=== PATIENT | female | born 1970 | race African-American/Black ===

== ENCOUNTER → 2016-05-14 | Outpatient (CLI) | payer SELFPAY ==
[2016-05-14 11:02] LABS: ABSOLUTE BASOPHILS # (AUTO) 0.1 10^3/uL (0.0-0.2); ABSOLUTE EOSINOPHILS # (AUTO) 0.9 10^3/uL (0.0-0.6); ABSOLUTE LYMPHOCYTES (AUTO) 1.3 10^3/uL (0.5-4.7); ABSOLUTE MONOCYTES (AUTO) 0.5 10^3/uL (0.1-1.4); ABSOLUTE NEUT (AUTO) 2.7 10^3/uL (1.7-8.2); BASOPHILS % (AUTO) 1.1 % (0-2); HEMATOCRIT 39.4 % (36.0-47.0); HEMOGLOBIN 13.1 g/dL (12.0-15.5); HGB HCT DIFFERENCE -0.1; LYMPHOCYTES % (AUTO) 24.3 % (13-45); MEAN CORPUSCULAR HEMOGLOBIN 27.7 pg (27.0-33.4); MEAN CORPUSCULAR HGB CONC 33.1 g/dL (32.0-36.0); MEAN CORPUSCULAR VOLUME 84 fl (80-97); MONOCYTES % (AUTO) 8.4 % (3-13); RED BLOOD COUNT 4.71 10^6/uL (3.72-5.28); RED CELL DISTRIBUTION WIDTH 15.7 % (11.5-14.0); SEGMENTED NEUTROPHILS % (AUTO) 50.2 % (42-78); WHITE BLOOD COUNT 5.4 10^3/uL (4.0-10.5)
[2016-05-14 11:35] LABS: ALANINE AMINOTRANSFERASE 31 U/L (9-52); ALBUMIN 3.8 g/dL (3.5-5.0); ALKALINE PHOSPHATASE 76 U/L (38-126); ANION GAP 12 (5-19); ASPARTATE AMINO TRANSFERASE 16 U/L (14-36); BILIRUBIN,TOTAL 0.4 mg/dL (0.2-1.3); BLOOD UREA NITROGEN 10 mg/dL (7-20); CALCIUM 8.9 mg/dL (8.4-10.2); CARBON DIOXIDE 24 mmol/L (22-30); CHLORIDE 105 mmol/L (98-107); CREATININE RESULT 0.69 mg/dL (0.52-1.25); GLUCOSE 83 mg/dL (75-110); POTASSIUM 4.3 mmol/L (3.6-5.0); SODIUM 140.7 mmol/L (137-145); TOTAL PROTEIN 6.8 g/dL (6.3-8.2)
== END ==
LOC: OD 10:01
PROVIDERS: ATTEND Internal Medicine Cardiovascular Disease
DX: R00.2 Palpitations (principal); R07.9 Chest pain, unspecified; Z95.2 Presence of prosthetic heart valve
CPT/HCPCS: 36415; 80053; 84443; 85025

== ENCOUNTER 2017-04-12 21:42 | Emergency (ER) | payer MEDICAID, OTHER ==
--- NOTE | 2017-04-13 00:27 | ER Document Report ---
ED Cardiac - General Chief Complaint: Chest Pain Stated Complaint: CHEST PAIN Time Seen by Provider: 04/13/17 00:26 Notes: The patient, PMHx aortic and mitral valve replacement (on Lovenox), presents with constant upper chest pain for the past 2 days. She had a negative stress test and cardiac cath 8 months ago in [place]. Patient denies shortness of breath, leg swelling, numbness, tingling, back pain, rash, fevers, headache, cough or headache. TRAVEL OUTSIDE OF THE [place] IN LAST 30 DAYS: No - Related Data Allergies/Adverse Reactions: No Known Allergies Allergy (Verified 07/31/14 00:12) Past Medical History - General Information source: Patient - Social History Smoking Status: Unknown if Ever Smoked Family History: Reviewed & Not Pertinent Patient has suicidal ideation: No Patient has homicidal ideation: No Renal/ Medical History: Denies: Hx Peritoneal Dialysis Past Surgical History: Reports: Hx Cardiac Catheterization - valve replacement, Hx Cardiac Surgery - artificial mitral and aortic valves, 2011 - Immunizations Immunizations up to date: Yes Hx Diphtheria, Pertussis, Tetanus Vaccination: Yes Review of Systems - Review of Systems Notes: REVIEW OF SYSTEMS: CONSTITUTIONAL: -fevers, -chills EENT: -eye pain, -difficulty swallowing, -nasal congestion CARDIOVASCULAR: +chest pain, -syncope. RESPIRATORY: -cough, -SOB GASTROINTESTINAL: -abdominal pain, - nausea, -vomiting, -diarrhea GENITOURINARY: -dysuria, -hematuria MUSCULOSKELETAL: -back pain, -neck pain SKIN: -rash or skin lesions. HEMATOLOGIC: -easy bruising or bleeding. LYMPHATIC: -swollen, enlarged glands. NEUROLOGICAL: -altered mental status or loss of consciousness, -headache, - neurologic symptoms PSYCHIATRIC: -anxiety, -depression. ALL OTHER SYSTEMS REVIEWED AND NEGATIVE. Physical Exam - Vital signs Vitals: Temp Pulse Resp BP Pulse Ox 98.1 F 58 L 18 151/74 H 98 04/12/17 21:57 04/12/17 21:57 04/12/17 21:57 04/12/17 21:57 04/12/17 21:57 - Notes Notes: PHYSICAL EXAMINATION: GENERAL: Well-appearing, well-nourished and in no acute distress. HEAD: Atraumatic, normocephalic. EYES: Pupils equal round and reactive to light, extraocular movements intact, sclera anicteric, conjunctiva are normal. ENT: nares patent, oropharynx clear without exudates. Moist mucous membranes. NECK: Normal range of motion, supple without lymphadenopathy LUNGS: Breath sounds clear to auscultation bilaterally and equal. No wheezes rales or rhonchi. HEART: Regular rate and rhythm without murmurs ABDOMEN: Soft, nontender, normoactive bowel sounds. No guarding, no rebound. No masses appreciated. EXTREMITIES: Normal range of motion, no pitting or edema. No cyanosis. NEUROLOGICAL: Cranial nerves grossly intact. Normal speech, normal gait. Normal sensory and motor exams. PSYCH: Normal mood, normal affect. SKIN: Warm, Dry, normal turgor, no rashes or lesions noted. Course - Re-evaluation Re-evalutation: Patient's chest pain completely resolved. Her EKG, troponin, blood work and chest x-ray are unremarkable. Her chest x-ray shows a possible left lower lobe opacity, but she denies any fevers, cough or leukocytosis to suggest an pneumonia. Patient's HEART score is 3. She is PERC negative. Symptoms are atypical for aortic dissection. Instructed her follow-up with her primary care physician and molded grid and parts inspector tomorrow for further evaluation and treatment. Given very strict return precautions and she understands. - Vital Signs Vital signs: Temp Pulse Resp BP Pulse Ox 98.1 F 58 L 17 121/68 99 04/12/17 21:57 04/12/17 21:57 04/13/17 04:01 04/13/17 04:01 04/13/17 04:01 - Laboratory Result Diagrams: 04/13/17 01:15 04/13/17 01:15 Laboratory results interpreted by me: 04/13/17 04/13/17 01:15 01:15 Hgb 11.9 L Hct 35.8 L RDW 17.7 H Plt Count 119 L Eosinophils % 11.9 H Absolute Eosinophils 0.7 H Chloride 108 H - Diagnostic Test Radiology reviewed: Image reviewed, Reports reviewed Radiology results interpreted by me: CXR: Small left basilar opacity -effusion. - EKG Interpretation by Me EKG shows normal: Sinus rhythm, [place], Intervals, QRS Complexes, ST-T Waves Rate: Normal Discharge - Discharge Clinical Impression: Chest pain Qualifiers: Chest pain type: unspecified Qualified Code(s): R07.9 - Chest pain, unspecified Condition: Stable Disposition: HOME, SELF-CARE Additional Instructions: CHEST PAIN OF UNCLEAR CAUSE: The exact cause of your chest pain isn't clear. Fortunately, there is no evidence of a dangerous medical condition. Further testing may be required to find the source of the pain. Most often, we find that this pain is coming from the chest wall -- the muscles or rib joints in the chest. But chest pain can come from the lung and lung lining, the esophagus, the heart valves or heart lining, and even the stomach or gallbladder. Rest. Eat lightly until the pain is gone. We may prescribe medicine for pain and inflammation. You should call the physician immediately if the pain radiates to the shoulder, jaw or arms; if you start to run a fever or develop a cough; or if you develop shortness of breath, or other new or alarming symptoms. NORMAL EXAM AND WORKUP: At this time, your examination and workup show no significant abnormality. No significant abnormal physical findings were noted. All laboratory, EKG, and imaging (x-ray, CT scans, ultrasound) studies that were ordered show no significant abnormality. Although your examination and all studies that were ordered showed no significant abnormal finding, there are no examinations and no studies that are 100% accurate. There is always the possibility that some abnormality could exist and not be detected with physical examination or within the limits and capabilities of laboratory and other studies. You should return or follow up as you were instructed on your visit today for further evaluation if your symptoms do not resolve. CHEST WALL PAIN: Your chest pain may be coming from the chest wall. This is often caused by straining the muscles or joints in the chest during physical activity, direct trauma, coughing, or vigorous vomiting. Persons with arthritis are especially prone to this type of pain, due to inflammation of the cartilage joints near the breast bone. Occasionally, no cause can be found. Rest from strenuous physical activity. This kind of chest pain is usually made worse by movement of the chest. Depending on the symptoms, we may prescribe medicine for pain, muscle relaxation, and antiinflammatory effects. If the pain is new, and seems to be due to muscle strain, cold packs can help. Otherwise, apply gentle warmth to the painful area for 15 minutes every hour or two. You should call contact the doctor immediately if things change. Further evaluation is needed if you develop a fever or cough, if the nature of the pain changes, or if you become short of breath. ANGINA EPISODE: Your physician has diagnosed the pain you experienced as an episode of angina. Angina occurs when a portion of the heart muscle temporarily lacks oxygen. It does not cause any permanent heart damage, but serves as a warning. Hospitalization is not necessary now. Evaluation of your cardiac condition , and medical therapy for angina will be necessary. It's important you be sure to keep all appointments and take medication exactly as prescribed. Angina is usually treated with a type of "nitrate" medication. This is available as ointment, pills, or sublingual (under the tongue) tablets. Depending on your clinical situation, other medications may be added to help control angina. These may include beta blockers or calcium blockers. If episodes of angina are occurring with increased frequency, or if chest pain lasts longer than 15 minutes or does not respond to nitroglycerin, you must seek emergency medical care immediately. ASPIRIN: Aspirin has been shown to have a beneficial effect on blood circulation by reducing the clotting effect of platelets in the blood. These beneficial effects can be achieved by taking just a single baby (81 mg) aspirin a day. It is recommended that any person over the age of forty take a single baby aspirin every day for heart and brain circulation, unless you are allergic to aspirin or have some significant bleeding disorder. It is strongly recommended that people who have proven cardiac or blood circulation disturbances should take a baby aspirin every day. NITRATES: Nitroglycerin and related longer-acting nitrate medications are used to prevent or treat attacks of angina. These medicines dilate blood vessels, decreasing the work of the heart, and improving its supply of oxygen. Many different forms are available, including sublingual tablets (used under the tongue), sprays, skin patches, and long-acting pills. If the particular form of medication you have been given is not working well for you, contact your doctor. Long-acting forms: Take exactly as prescribed. Sudden stopping of medication can provoke increased attacks. Sublingual tabs or spray: A headache will usually occur with use. Sit or lie while waiting for the pain to go away. If angina doesn't respond to three doses (five minutes apart), call for emergency assistance. FOLLOW-UP CARE: If you have been referred to a physician for follow-up care, call the physician s office for an appointment as you were instructed or within the next two days. If you experience worsening or a significant change in your symptoms, notify the physician immediately or return to the Emergency Department at any time for re-evaluation. Referrals: KRISTAN SAMS MD [ACTIVE STAFF] - Follow up as needed
[2017-04-13] MEDS ORDERED: NITROGLYCERIN 0.4 MG/TAB 25 TAB/BOTTLE SL PRN (01:00)
[2017-04-13] MEDS ORDERED: ASPIRIN 81 MG TABLET, CHEWABLE PO ONE (01:00)
--- NOTE | 2017-04-13 01:20 | RADIOLOGY REPORT (SQ) ---
EXAM DESCRIPTION: CHEST SINGLE VIEW COMPLETED DATE/TIME: 04/13/2017 1:07 am REASON FOR STUDY: chest pain COMPARISON: 07/31/2014. CT, 01/10/2013. EXAM PARAMETERS: NUMBER OF VIEWS: One view. TECHNIQUE: Single frontal radiographic view of the chest acquired. RADIATION DOSE: NA LIMITATIONS: None. FINDINGS: LUNGS AND PLEURA: Small left basilar opacity -effusion. Small pleural-based scar -atelect asis of the lateral left mid hemithorax. Similar appearance on prior exam from July 2014. MEDIASTINUM AND HILAR STRUCTURES: No masses. Contour normal. HEART AND VASCULAR STRUCTURES: Heart normal in size. Normal vasculature. BONES: No acute findings. HARDWARE: Sternotomy. OTHER: No other significant finding. IMPRESSION: Small left basilar opacity -effusion. TECHNICAL DOCUMENTATION: JOB ID: [id number] [employer]- All Rights Reserved
[2017-04-13 01:56] LABS: ABSOLUTE BASOPHILS # (AUTO) 0.1 10^3/uL (0.0-0.2); ABSOLUTE EOSINOPHILS # (AUTO) 0.7 10^3/uL (0.0-0.6); ABSOLUTE LYMPHOCYTES (AUTO) 1.6 10^3/uL (0.5-4.7); ABSOLUTE MONOCYTES (AUTO) 0.5 10^3/uL (0.1-1.4); ABSOLUTE NEUT (AUTO) 2.9 10^3/uL (1.7-8.2); BASOPHILS % (AUTO) 1.2 % (0-2); EOSINOPHILS % (AUTO) 11.9 % (0-6); HEMATOCRIT 35.8 % (36.0-47.0); HEMOGLOBIN 11.9 g/dL (12.0-15.5); HGB HCT DIFFERENCE -0.1; MEAN CORPUSCULAR HGB CONC 33.1 g/dL (32.0-36.0); MEAN CORPUSCULAR VOLUME 82 fl (80-97); MONOCYTES % (AUTO) 8.5 % (3-13); RED BLOOD COUNT 4.38 10^6/uL (3.72-5.28); RED CELL DISTRIBUTION WIDTH 17.7 % (11.5-14.0); SEGMENTED NEUTROPHILS % (AUTO) 50.4 % (42-78); WHITE BLOOD COUNT 5.7 10^3/uL (4.0-10.5)
[2017-04-13 03:25] LABS: ALANINE AMINOTRANSFERASE 35 U/L (9-52); ALBUMIN 3.7 g/dL (3.5-5.0); ALKALINE PHOSPHATASE 84 U/L (38-126); ANION GAP 10 (5-19); ASPARTATE AMINO TRANSFERASE 20 U/L (14-36); BILIRUBIN,DIRECT 0.3 mg/dL (0.0-0.4); BILIRUBIN,TOTAL 0.4 mg/dL (0.2-1.3); BLOOD UREA NITROGEN 12 mg/dL (7-20); CALCIUM 8.7 mg/dL (8.4-10.2); CARBON DIOXIDE 24 mmol/L (22-30); CHLORIDE 108 mmol/L (98-107); CREATINE KINASE 110 U/L (30-135); GLUCOSE 107 mg/dL (75-110); POTASSIUM 3.9 mmol/L (3.6-5.0); SODIUM 141.9 mmol/L (137-145); TOTAL PROTEIN 6.4 g/dL (6.3-8.2)
[2017-04-13 04:22] VITALS: BP 121/68
--- NOTE | 2017-04-13 09:19 | EKG REPORT ---
SEVERITY:- ABNORMAL ECG - SINUS RHYTHM INCOMPLETE RIGHT BUNDLE BRANCH BLOCK : Confirmed by: Van Pulliam MD 13-Apr-2017 09:18:34
== END 2017-04-13 04:22 | disposition home or self-care (01) ==
LOC: ER 21:42
DX: R07.9 Chest pain, unspecified (principal); Z95.2 Presence of prosthetic heart valve; Z79.02 Long term (current) use of antithrombotics/antiplatelets
CPT/HCPCS: 36415; 71010; 80053; 81025; 82550; 84484; 85025; 93005; 93010; 99285

== ENCOUNTER 2018-06-18 10:18 | Emergency (ER) | payer OTHER ==
--- NOTE | 2018-06-18 12:04 | ER Document Report ---
ED Medical Screen (RME) - General Chief Complaint: Cough Stated Complaint: COUGH Time Seen by Provider: 06/18/18 12:01 Mode of Arrival: Ambulatory Information source: Patient Notes: Patient is a 47-year-old female who presents to the emergency department with chief complaint of cough. Patient reports cough started on Friday. Patient has associated congestion, chills, fevers, body aches, nausea, vomiting and diarrhea. Patient denies any specific chest pain but states that she has a pacemaker and the cough is "messing with my pacemaker". Patient reports some intermittent chest discomfort with the cough. Exam: Heart sounds S1-S2 present, no murmur appreciated. Lung sounds clear to auscultation bilaterally. I have greeted and performed a rapid initial assessment of this patient. A comprehensive ED assessment and evaluation of the patient, analysis of test results and completion of the medical decision making process will be conducted by additional ED providers. Dictation of this chart was performed using voice recognition software; therefore, there may be some unintended grammatical errors. TRAVEL OUTSIDE OF THE [place] IN LAST 30 DAYS: No - Related Data Allergies/Adverse Reactions: No Known Allergies Allergy (Verified 07/31/14 00:12) Past Medical History Renal/ Medical History: Denies: Hx Peritoneal Dialysis Past Surgical History: Reports: Hx Cardiac Catheterization - valve replacement, Hx Cardiac Surgery - artificial mitral and aortic valves, 2012 - Immunizations Immunizations up to date: Yes Hx Diphtheria, Pertussis, Tetanus Vaccination: Yes Physical Exam - Vital signs Vitals: Temp Pulse Resp BP Pulse Ox 101.0 F H 105 H 18 151/80 H 95 06/18/18 10:30 06/18/18 10:30 06/18/18 10:30 06/18/18 10:30 06/18/18 10:30 Course - Vital Signs Vital signs: Temp Pulse Resp BP Pulse Ox 101.0 F H 105 H 18 151/80 H 95 06/18/18 10:30 06/18/18 10:30 06/18/18 10:30 06/18/18 10:30 06/18/18 10:30
--- NOTE | 2018-06-18 12:41 | RADIOLOGY REPORT (SQ) ---
EXAM DESCRIPTION: CHEST 2 VIEWS COMPLETED DATE/TIME: 06/18/2018 12:23 pm REASON FOR STUDY: cough, chills, chest pain COMPARISON: Chest films 04/13/2017, 07/31/2014 EXAM PARAMETERS: NUMBER OF VIEWS: two views TECHNIQUE: Digital Frontal and Lateral radiographic views of the chest acquired. RADIATION DOSE: NA LIMITATIONS: none FINDINGS: LUNGS AND PLEURA: Chronic blunting of the left lateral and posterior costophrenic sulci. No acute infiltrates. No pleural effusions. No pneumothorax. MEDIASTINUM AND HILAR STRUCTURES: No masses or contour abnormalities. HEART AND VASCULAR STRUCTURES: Old sternotomy with CABG. BONES: No acute findings. HARDWARE: Right-sided dual lead pacemaker OTHER: No other significant finding. IMPRESSION: No acute findings. TECHNICAL DOCUMENTATION: JOB ID: [id number] [employer]- All Rights Reserved Reading location - IP/workstation name: [email or web address]
[2018-06-18] MEDS ORDERED: ACETAMINOPHEN 325 MG TABLET PO ONE ×2 (13:41→21:13)
[2018-06-18 15:51] LABS: ABSOLUTE EOSINOPHILS # (AUTO) 0.1 10^3/uL (0.0-0.6); ABSOLUTE LYMPHOCYTES (AUTO) 0.4 10^3/uL (0.5-4.7); ABSOLUTE MONOCYTES (AUTO) 0.5 10^3/uL (0.1-1.4); ABSOLUTE NEUT (AUTO) 5.1 10^3/uL (1.7-8.2); BASOPHILS % (AUTO) 0.7 % (0-2); EOSINOPHILS % (AUTO) 1.5 % (0-6); HEMATOCRIT 40.5 % (36.0-47.0); HEMOGLOBIN 13.6 g/dL (12.0-15.5); LYMPHOCYTES % (AUTO) 7.1 % (13-45); MEAN CORPUSCULAR HEMOGLOBIN 28.6 pg (27.0-33.4); MEAN CORPUSCULAR HGB CONC 33.6 g/dL (32.0-36.0); MEAN CORPUSCULAR VOLUME 85 fl (80-97); MONOCYTES % (AUTO) 7.5 % (3-13); PLATELET COUNT 138 10^3/uL (150-450); RED BLOOD COUNT 4.76 10^6/uL (3.72-5.28); SEGMENTED NEUTROPHILS % (AUTO) 83.2 % (42-78); TOTAL CELLS COUNTED % (AUTO) 100 %; WHITE BLOOD COUNT 6.1 10^3/uL (4.0-10.5)
[2018-06-18 16:09] LABS: ALANINE AMINOTRANSFERASE 18 U/L (9-52); ALBUMIN 4.3 g/dL (3.5-5.0); ALKALINE PHOSPHATASE 90 U/L (38-126); ANION GAP 12 (5-19); ASPARTATE AMINO TRANSFERASE 23 U/L (14-36); BILIRUBIN,DIRECT 0.2 mg/dL (0.0-0.4); BILIRUBIN,TOTAL 0.8 mg/dL (0.2-1.3); BLOOD UREA NITROGEN 12 mg/dL (7-20); CALCIUM 9.3 mg/dL (8.4-10.2); CARBON DIOXIDE 21 mmol/L (22-30); CHLORIDE 106 mmol/L (98-107); GLUCOSE 82 mg/dL (75-110); POTASSIUM 3.9 mmol/L (3.6-5.0); SODIUM 139.1 mmol/L (137-145); TOTAL PROTEIN 7.2 g/dL (6.3-8.2)
[2018-06-18 16:45] LABS: A TYPE INFLUENZA AG NEGATIVE (NEGATIVE); B INFLUENZA AG NEGATIVE (NEGATIVE)
--- NOTE | 2018-06-18 17:53 | ER Document Report ---
Addendum entered and electronically signed by EVELINA CHEEMA PA-C 06/19/18 14:14: Discharge - Discharge Clinical Impression: Shortness of breath, Influenza Condition: Stable Disposition: HOME, SELF-CARE Additional Instructions: We were initially concerned that you were having runs of ventricular tachycardia. This is a dangerous rhythm. Fortunately after interrogation of your pacemaker by the [employer] traffic workforce representative we have confirmed that you do not have this type of rhythm. Our mobility manager Dr. Mason will contact your mobility manager at 8 AM in the morning to discuss your case. Please contact your mobility manager for follow-up. Your additional symptoms including fever, cough and sore throat are likely due t o a viral infection either influenza or similar virus. The only treatment at this time is supportive care including drinking plenty of fluids, Tylenol and ibuprofen, as well as nausea medicines which you will be sent home with. Your symptoms will likely last for 7-10 days. Please return to the emergency department immediately if you become confused, have persistent vomiting, pass out, have severe headache, or have any other symptoms that are worrisome to you. Follow-up with your primary care doctor in the next several days. Original Note: ED General - General Mode of Arrival: Ambulatory TRAVEL OUTSIDE OF THE [place] IN LAST 30 DAYS: No <EVELINA CHEEMA - Last Filed: 06/18/18 21:02> <ALICE SHIRLEY - Last Filed: 06/19/18 01:44> - General Chief Complaint: Cough Stated Complaint: COUGH Time Seen by Provider: 06/18/18 12:01 Notes: 40-year-old female with history of 2 heart valve replacement status post pacemaker presents to the emergency department with a bad cough. She states it started Friday and she has had difficulty breathing. She complains of fevers and chills she complains of cough and rhinorrhea, denies sore throat, she complains of chest pain with cough not at rest, she complains of nausea and vomiting, denies diarrhea. Denies dizziness or diaphoresis denies lightheadedness denies dyspnea on exertion. (EVELINA CHEEMA) - Related Data Allergies/Adverse Reactions: No Known Allergies Allergy (Verified 06/18/18 21:35) Past Medical History - General Information source: Patient - Social History Smoking Status: Smoker,Current Status Unk Family History: Reviewed & Not Pertinent Patient has suicidal ideation: No Patient has homicidal ideation: No Renal/ Medical History: Denies: Hx Peritoneal Dialysis Past Surgical History: Reports: Hx Cardiac Catheterization - valve replacement, Hx Cardiac Surgery - artificial mitral and aortic valves, 2012 - Immunizations Immunizations up to date: Yes Hx Diphtheria, Pertussis, Tetanus Vaccination: Yes <ARTIEEVELINA WONG - Last Filed: 06/18/18 21:02> Review of Systems - Review of Systems Constitutional: See HPI EENT: See HPI Cardiovascular: See HPI Respiratory: See HPI Gastrointestinal: See HPI Genitourinary: No symptoms reported Female Genitourinary: No symptoms reported Musculoskeletal: No symptoms reported Skin: See HPI Hematologic/Lymphatic: No symptoms reported Neurological/Psychological: See HPI <DENIEVELINA - Last Filed: 06/18/18 21:02> Physical Exam <ARTIETAMMYVIRGINIAEVELINA - Last Filed: 06/18/18 21:02> - Vital signs Vitals: Temp Pulse Resp BP Pulse Ox 101.0 F H 105 H 18 151/80 H 95 06/18/18 10:30 06/18/18 10:30 06/18/18 10:30 06/18/18 10:30 06/18/18 10:30 - Notes Notes: PHYSICAL EXAMINATION: Reviewed vital signs and charting by RN GENERAL: Alert, interacts well. Mild distress distress. HEAD: Normocephalic, atraumatic. EYES: Pupils equal, round. Extraocular movements intact. ENT: Oral mucosa moist, tongue midline, no tonsillar hypertrophy or soft palate petechiae, no tonsillar exudate. NECK: Full range of motion. Supple. Trachea midline. No lymphadenopathy. LUNGS: Clear to auscultation bilaterally, ++ wheezes all acuna, rales, or rhonchi. No respiratory distress. HEART: Regular rate and rhythm. Grade 3/6 systolic ejection murmur ABDOMEN: soft, non-tender. Non-distended. Bowel sounds present in all 4 quadrants. no McBurney's point tenderness, no Thorne sign. EXTREMITIES: Moves all 4 extremities spontaneously. No edema, No cyanosis. BACK: no cervical, thoracic, lumbar midline tenderness. No saddle anesthesia, normal distal neurovascular exam. NEUROLOGICAL: Alert and oriented x3. Normal speech. PSYCH: Normal affect, normal mood. SKIN: Warm, dry, normal turgor. No rashes or lesions noted. (CARROLL CHEEMAEL) Course - Laboratory Result Diagrams: 06/18/18 15:40 06/18/18 15:40 <DENIEVELINA - Last Filed: 06/18/18 21:02> - Laboratory Result Diagrams: 06/18/18 15:40 06/18/18 15:40 <ALICE SHIRLEY - Last Filed: 06/19/18 01:44> - Re-evaluation Re-evalutation: 06/18/18 17:52 Mildly ill-appearing 48-year-old female presents with terrible cough. Wheezing heard in all acuna. She complains of chest wall pain that is worse with coughing. She denies any chest pain at rest. Initial troponin was 0.034. Plan is to get a repeat troponin. Chest x-ray was normal. EKG no evidence of STEMI. Her symptoms are most likely related to a viral illness. Her influenza was negative. 06/18/18 19:10 Briefly discussed case with Dr. Oro. We will give her a DuoNeb and reassess. Second troponin drawn and pending. I have very low suspicion for a CS at this point. 06/18/18 19:24 Patient just finished DuoNeb and reports subjective improvement. Still with end expiratory wheezing right worse than left. We will give her 1 more DuoNeb. Second troponin is drawn and result is pending. We will then discuss case with Dr. Sauceda for disposition. 06/18/18 20:[address] Mason, on-call mobility manager, and explained to him patient had troponin of 0.034 with pending second troponin. He said he is not concerned about the troponin of 0.034 and there is no reason to admit her. I explained to him that she had a 2 valve replacement in the past. He was unmoved and said that there is no emergent condition that would require admission at this time based on our conversation. Second troponin ultimately resulted at 0.029. I discussed with Dr. Sauceda and as long as there is no large bump in troponin we would follow the mobility manager on-call recommendation. She is awaiting a second DuoNeb and for reassessment. 06/18/18 21:02 Patient had a run of V. tach. Spontaneously resolved. Patient then had a second run of V. tach with associated shortness of breath. I went and discussed case with Dr. Shirley. [facility] will be transferred to [facility] and he is assuming care of the patient. (EVELINA CHEEMA) - Vital Signs Vital signs: Temp Pulse Resp BP Pulse Ox 99.3 F 105 H 20 111/77 97 06/18/18 23:00 06/18/18 10:30 06/19/18 01:01 06/19/18 01:01 06/19/18 01:01 - Laboratory Laboratory results interpreted by me: 06/18/18 06/18/18 06/18/18 15:40 15:40 18:55 RDW 15.0 H Plt Count 138 L Seg Neutrophils % 83.2 H Lymphocytes % 7.1 L Absolute Lymphocytes 0.4 L Carbon Dioxide 21 L NT-Pro-B Natriuret Pep 748 H Discharge <EVELINA CHEEMA - Last Filed: 06/18/18 21:02> <ALICE SHIRLEY - Last Filed: 06/19/18 01:44> - Discharge Clinical Impression: Shortness of breath, Influenza Condition: Stable Disposition: HOME, SELF-CARE Additional Instructions: We were initially concerned that you were having runs of ventricular tachycardia. This is a dangerous rhythm. Fortunately after interrogation of your pacemaker by the [employer] traffic workforce representative we have confirmed that you do not have this type of rhythm. Our mobility manager Dr. Mason will contact your mobility manager at 8 AM in the morning to discuss your case. Please contact your mobility manager for follow-up. Your additional symptoms including fever, cough and sore throat are likely due to a viral infection either influenza or similar virus. The only treatment at this time is supportive care including drinking plenty of fluids, Tylenol and ibuprofen, as well as nausea medicines which you will be sent home with. Your symptoms will likely last for 7-10 days. Please return to the emergency d epartment immediately if you become confused, have persistent vomiting, pass out, have severe headache, or have any other symptoms that are worrisome to you. Follow-up with your primary care doctor in the next several days.
[2018-06-18] MEDS ORDERED: IPRATROPIUM/ALBUTEROL 0.5-2.5 MG/3 ML AMPUL NEB ONE ×2 (18:49→19:24)
[2018-06-18] MEDS ORDERED: AMIODARONE HCL 150 MG in DEXTROSE 5%-WATER 100 ML IV ONE (20:55)
[2018-06-18] MEDS ORDERED: DEXTROSE 5%-WATER 500 ML with AMIODARONE HCL 900 MG IV PRN ×2 (20:56)
--- NOTE | 2018-06-18 20:59 | ER Document Report ---
Doctor's Note Notes: 06/18/18 20:57 I have assumed care of this patient from the physician trust administrative assistant. In summary this 47-year-old patient with a known history of 2 valve replacements, on anticoagulant, has a history of a pacemaker in place and known history of A. fib presented with fever, shortness of breath and cough. Workup to this point has been relatively reassuring with the exception of a indeterminate troponin which has subsequently declined. Patient has had multiple runs of ventricular tachycardia here in the emergency department captured on monitor. No known history of the same. Given ongoing shortness of breath, some degree of chest pain, low-grade fever, there is an additional concern for possible pulmonary embolus. CTA will be obtained. Patient will also be started on amiodarone infusion given that she has had multiple runs of ventricular tachycardia while here in the emergency department. She has been transitioned from pod 5 to the main side. Will continue to reassess the patient at regular intervals. Please see physician trust administrative assistant documentation for initial H&P. We will also interrogate the patient's pacemaker is apparently she is also notified yesterday that she had had a run of ventricular tachycardia. 06/18/18 21:05 We have reviewed the transcripts of the patient's telemetry, she was in ventricular tachycardia for sustained period of 3 minutes. Currently in normal sinus rhythm. Otherwise nontoxic in appearance. Suspect underlying influenza given clinical picture of nausea, vomiting, diarrhea, sore throat and cough with associated fever despite negative influenza testing which has a relatively high rate of false negative testing. Will continue to monitor closely 06/18/18 22:33 CTA of the chest without any acute findings. Suspect that the patient has influenza despite negative testing. Given repeated runs of ventricular tachycardia patient will require hospitalization. Will discuss with the hospitalist for admission. 06/18/18 23:21 I discussed this case with Dr. Klein who states that this could alternatively be a ventricular paced rhythm. He has recommended ICU admission on amio. Critical Care Note - Critical Care Note Total time excluding time spent on procedures (mins): 40 Comments: Critical care time spent obtaining history from patient or surrogate, discussions with consultants, development of treatment plan with patient or surrogate, evaluation of patient's response to treatment, examination of patient, ordering and performing treatments and interventions, ordering and review of laboratory studies, re-evaluation of patient's condition, ordering and review of radiographic studies and review of old charts
[2018-06-18 21:51] LABS: INTERNATIONAL RATION (INR) 1.01; PROTHROMBIN TIME 13.8 SEC (11.4-15.4)
--- NOTE | 2018-06-18 22:03 | RADIOLOGY REPORT (SQ) ---
EXAM DESCRIPTION: CT CHEST ANGIOGRAPHY WITHOUT THEN WITH IV CONTRAST COMPLETED DATE/TME: 06/18/2018 20:57 CLINICAL HISTORY: 47 years, Female, sob, cp, runs of vtach COMPARISON: None. TECHNIQUE: 675 Images stored on PACS. All CT scanners at this facility use dose modulation, iterative reconstruction, and/or weight based dosing when appropriate to reduce radiation dose to as low as reasonably achievable (ALARA). Axial CTA images were obtained with coronal and sagittal MIPS reconstructions [facility]: Dose Right [facility]: CareDose [facility]: Dose Right [facility]: Teradose 4D [facility]: [employer] LIMITATIONS: None. FINDINGS: The mediastinal vasculature enhances normally. No intraluminal filling defect to suggest pulmonary embolus. Negative for thoracic aortic aneurysm or dissection. Right-sided pacing device present. Postsurgical change of the mediastinum. Nonenlarged to mildly enlarged mediastinal and hilar lymph nodes. The largest node is in the subcarinal region measuring 1.7 x 1.2 cm. Limited evaluation of the upper abdomen shows fatty infiltrative change to the liver. Osseous structures are grossly intact. No pneumothorax. The visualized airways are patent. Subsegmental atelectasis/scarring in the posterior left lung base and lateral left upper lobe. Lungs are otherwise clear.. IMPRESSION: Negative for pulmonary embolus, thoracic aortic aneurysm, or dissection. Subsegmental atelectasis and scarring of the left hemithorax. Nonenlarged to mildly enlarged mediastinal and hilar lymph nodes. Etiology indeterminate. Could consider short-term follow-up to ensure stability or resolution in 3-6 months. Fatty infiltrative change to the liver TECHNICAL DOCUMENTATION: Quality ID # [id number]: Final reports with documentation of one or more dose reduction techniques (e.g., Automated exposure control, adjustment of the mA and/or kV according to patient size, use of iterative reconstruction technique) copyright 2010 [employer]- All Rights Reserved
[2018-06-18] MEDS ORDERED: MAGNESIUM HYDROXIDE SUSP 30 ML UDCUP PO PRN (23:43)
[2018-06-18] MEDS ORDERED: ONDANSETRON 4 MG TAB.RAPDIS PO PRN (23:43)
[2018-06-18] MEDS ORDERED: ONDANSETRON HCL INJ/PF 4 MG/2 ML SDV IV PRN (23:43)
[2018-06-18] MEDS ORDERED: MAG HYDROX/AL HYDROX/SIMETH SUSP 30 ML UDCUP PO PRN (23:43)
[2018-06-18] MEDS ORDERED: NITROGLYCERIN 0.4 MG/TAB 25 TAB/BOTTLE SL PRN (23:48)
[2018-06-18] MEDS ORDERED: MORPHINE SULFATE 10 MG/ML INJ IV PRN ×3 (23:48)
[2018-06-18] MEDS ORDERED: ACETAMINOPHEN 325 MG TABLET PO PRN (23:48)
[2018-06-18] MEDS ORDERED: NICOTINE 21 MG/24 HR PATCH.TD24 TD PRN (23:48)
[2018-06-18] MEDS ORDERED: LEVALBUTEROL HCL NEB 0.63 MG/3 ML AMPUL NEB PRN (23:50)
[2018-06-19 01:10] VITALS: BP 111/77
[2018-06-19] MEDS ORDERED: FONDAPARINUX SODIUM INJ 2.5 MG/0.5 ML DISP.SYRIN SUBCUT SCH (08:00)
[2018-06-19] MEDS ORDERED: ACETYLCYSTEINE 20% SOLN 800 MG/4 ML VIAL.NEB NEB SCH (08:00)
[2018-06-19] MEDS ORDERED: FAMOTIDINE 20 MG TABLET PO SCH (10:00)
[2018-06-19] MEDS ORDERED: DOCUSATE SODIUM 100 MG CAPSULE PO SCH (10:00)
--- NOTE | 2018-06-19 12:40 | EKG REPORT ---
SEVERITY:- NORMAL ECG - SINUS RHYTHM : Confirmed by: Regla Doherty 19-Jun-2018 12:39:38
--- NOTE | 2018-06-19 12:41 | EKG REPORT ---
SEVERITY:- ABNORMAL ECG - SINUS RHYTHM FIRST DEGREE AV BLOCK NONSPECIFIC T ABNORMALITIES, INFERIOR LEADS : Confirmed by: Regla Doherty 19-Jun-2018 12:39:50
== END 2018-06-19 01:47 | disposition home or self-care (01) ==
LOC: ER 10:18 → UNDOADMIN 23:26 → EH 23:26 → ER 06-19 01:47
DX: J11.1 Influenza due to unidentified influenza virus with other respiratory manifestations (principal); R06.02 Shortness of breath; Z95.2 Presence of prosthetic heart valve
CPT/HCPCS: 93005; 94640 ×2; 99291; 96365; 36415; 85025; 85610; 80053; 84484; 87804; 83880; 71046; 71275; 93010; J7060; J0282; J7620

== ENCOUNTER 2018-10-12 09:00 | Inpatient (IN) | payer OTHER ==
[2018-10-12] MEDS ORDERED: IPRATROPIUM/ALBUTEROL 0.5-2.5 MG/3 ML AMPUL NEB ONE (09:09)
--- NOTE | 2018-10-12 09:12 | ER Document Report ---
ED Medical Screen (RME) - General Chief Complaint: Breathing Difficulty Stated Complaint: TROUBLE BREATHING Time Seen by Provider: 10/12/18 09:05 Mode of Arrival: Ambulatory Information source: Patient Notes: Patient presents with complaints of difficulty breathing. Reports symptoms started last night. She also complains of vomiting diarrhea that started last night also. History of COPD. History of cardiac disease with multiple surgeries, pacemaker. O2 sat was 83% on room air 92% on 2 L/NC. I have greeted and performed a rapid initial assessment of this patient. A comprehensive ED assessment and evaluation of the patient, analysis of test results and completion of the medical decision making process will be conducted by additional ED providers. Dictation of this chart was performed using voice recognition software; therefore, there may be some unintended grammatical errors. TRAVEL OUTSIDE OF THE [place] IN LAST 30 DAYS: No - Related Data Allergies/Adverse Reactions: No Known Allergies Allergy (Verified 10/12/18 09:00) Past Medical History - Social History Chew tobacco use (# tins/day): No Frequency of alcohol use: None Drug Abuse: None Renal/ Medical History: Denies: Hx Peritoneal Dialysis Past Surgical History: Reports: Hx Cardiac Catheterization - valve replacement, Hx Cardiac Surgery - artificial mitral and aortic valves, 2012 - Immunizations Immunizations up to date: Yes Hx Diphtheria, Pertussis, Tetanus Vaccination: Yes Physical Exam - Vital signs Vitals: Temp Pulse Resp BP Pulse Ox 99.1 F 111 H 40 H 196/123 H 83 L 10/12/18 09:03 10/12/18 09:03 10/12/18 09:03 10/12/18 09:03 10/12/18 09:03 Course - Vital Signs Vital signs: Temp Pulse Resp BP Pulse Ox 99.1 F 111 H 40 H 196/123 H 83 L 10/12/18 09:03 10/12/18 09:03 10/12/18 09:03 10/12/18 09:03 10/12/18 09:03
[2018-10-12] MEDS ORDERED: ADENOSINE INJ/PF 6 MG/2 ML SDV IV ONE (09:20)
[2018-10-12] MEDS ORDERED: NITROGLYCERIN 2% OINTMENT 1 GM PACKET ONE (09:21)
[2018-10-12] MEDS ORDERED: FUROSEMIDE INJ/PF 40 MG/4 ML SDV ONE (09:21)
[2018-10-12] MEDS ORDERED: NITROGLYCERIN 0.4 MG/TAB 25 TAB/BOTTLE ONE (09:28)
--- NOTE | 2018-10-12 09:43 | ER Document Report ---
ED General - General Chief Complaint: Breathing Difficulty Stated Complaint: TROUBLE BREATHING Time Seen by Provider: 10/12/18 09:05 Mode of Arrival: Ambulatory Information source: Patient, [facility] Records Notes: 47-year-old female with COPD, atrial fibrillation, hypertension, previous episodes of ventricular tachycardia with pacer presents with complaint of shortness of breath, vomiting and diarrhea. Patient states shortness of breath, vomiting and diarrhea started yesterday while at rest. She denies any associated chest pain, cough, lightheadedness, nausea, leg swelling, history of PE, DVT. Patient also states that she is not currently on any medication. Her primary care physician and cook chef are from [place]. TRAVEL OUTSIDE OF THE [place] IN LAST 30 DAYS: No - HPI Onset: Yesterday Onset/Duration: Gradual, Persistent, Worse Quality of pain: No pain Severity: None Associated symptoms: Diarrhea, Shortness of breath, Weakness. denies: Vomiting Exacerbated by: Movement, Walking Relieved by: Denies Similar symptoms previously: Yes Recently seen / treated by doctor: No - Related Data Allergies/Adverse Reactions: No Known Allergies Allergy (Verified 10/12/18 09:00) Past Medical History - General Information source: Patient - Social History Smoking Status: Current Every Day Smoker Cigarette use (# per day): Yes - 10 Chew tobacco use (# tins/day): No Smoking Education Provided: Yes - Smoking cessation counseling was provided for 4 minutes at the bedside Frequency of alcohol use: None Drug Abuse: None Lives with: Family Family History: Reviewed & Not Pertinent Patient has suicidal ideation: No Patient has homicidal ideation: No - Past Medical History Cardiac Medical History: Reports: Hx Atrial Fibrillation, Hx Hypertension, Other - Valve replacement Pulmonary Medical History: Reports: Hx COPD Renal/ Medical History: Denies: Hx Peritoneal Dialysis Past Surgical History: Reports: Hx Cardiac Catheterization - valve replacement, Hx Cardiac Surgery - artificial mitral and aortic valves, 2012 - Immunizations Immunizations up to date: Yes Hx Diphtheria, Pertussis, Tetanus Vaccination: Yes Review of Systems - Review of Systems Notes: REVIEW OF SYSTEMS: CONSTITUTIONAL : Denies fever, chills, or sweats. Denies recent illness. Denies weight loss, recent hospitalizations. EENT: Denies visual changes, eye pain. Denies sore throat, oral lesions, difficulty swallowing. CARDIOVASCULAR: Denies chest pain. Denies palpitations. Denies lower extremity edema. RESPIRATORY: Denies cough. +shortness of breath, denies wheezing. GASTROINTESTINAL: Denies abdominal pain or distention. + nausea, vomiting, + diarrhea. Denies blood in vomitus, stools, or per rectum. Denies black, tarry stools. Denies constipation. GENITOURINARY: Denies difficulty urinating, painful urination, frequency, blood in urine, or vaginal discharge. MUSCULOSKELETAL: Denies back or neck pain or stiffness. Denies joint pain or swelling. SKIN: Denies rash, lesions or sores. HEMATOLOGIC : Denies easy bruising or bleeding. LYMPHATIC: Denies swollen glands. NEUROLOGICAL: Denies confusion or altered mental status. Denies loss of consciousness. Denies dizziness or lightheadedness. Denies headache. Denies weakness or paralysis. Denies problems difficulty with ambulation, slurred s peech. Denies sensory loss, numbness, or tingling. Denies seizures. PSYCHIATRIC: Denies anxiety or stress. Denies depression, suicidal ideation, or homicidal ideation. Denies visual or auditory hallucinations. Physical Exam - Vital signs Vitals: Temp Pulse Resp BP Pulse Ox 99.1 F 111 H 40 H 196/123 H 83 L 10/12/18 09:03 10/12/18 09:03 10/12/18 09:03 10/12/18 09:03 10/12/18 09:03 - Notes Notes: PHYSICAL EXAMINATION: GENERAL: Ill-appearing, well-nourished and in moderate distress HEAD: Atraumatic, normocephalic. EYES: Pupils equal round and reactive to light, extraocular movements intact, conjunctiva are normal. ENT: Nares patent, oropharynx clear without exudates. Moist mucous membranes. NECK: Normal range of motion, supple without lymphadenopathy LUNGS: Crackles bilaterally. Accessory muscle use, increased work of breathing, hypoxia HEART: Tachycardic, regular rhythm ABDOMEN: Soft, nontender, nondistended abdomen. No guarding, no rebound. No masses appreciated. Female : deferred Musculoskeletal: Normal range of motion, no pitting or edema. No cyanosis. NEUROLOGICAL: Cranial nerves grossly intact. Normal speech, normal gait. N ormal sensory, motor exams PSYCH: Normal mood, normal affect. SKIN: Warm, Dry, normal turgor, no rashes or lesions noted. Course - Re-evaluation Re-evalutation: Laboratory 10/12/18 10/12/18 10/12/18 09:28 09:28 09:28 WBC 9.7 RBC 5.04 Hgb 14.1 Hct 42.1 MCV 83 MCH 27.9 MCHC 33.4 RDW 15.2 H Plt Count 137 L Seg Neutrophils % 85.6 H Lymphocytes % 7.2 L Monocytes % 5.8 Eosinophils % 0.8 Basophils % 0.6 Absolute Neutrophils 8.3 H Absolute Lymphocytes 0.7 Absolute Monocytes 0.6 Absolute Eosinophils 0.1 Absolute Basophils 0.1 Carbonic Acid HCO3/H2CO3 Ratio ABG pH ABG pCO2 ABG pO2 ABG HCO3 ABG Total CO2 ABG O2 Saturation ABG Base Excess FiO2 Sodium 139.1 Potassium 4.0 Chloride 103 Carbon Dioxide 25 Anion Gap 11 BUN 7 Creatinine 0.69 Est GFR ( Amer) > 60 Est GFR (Non-Af Amer) > 60 Glucose 115 H Lactic Acid Calcium 9.5 Total Bilirubin 1.0 Direct Bilirubin 0.3 Neonat Total Bilirubin Not Reportable Neonat Direct Bilirubin Not Reportable Neonat Indirect Bili Not Reportable AST 19 ALT 18 Alkaline Phosphatase 101 Creatine Kinase 159 H Troponin I 0.056 NT-Pro-B Natriuret Pep 1130 H Total Protein 8.0 Albumin 4.5 10/12/18 10/12/18 09:28 09:40 WBC RBC Hgb Hct MCV MCH MCHC RDW Plt Count Seg Neutrophils % Lymphocytes % Monocytes % Eosinophils % Basophils % Absolute Neutrophils Absolute Lymphocytes Absolute Monocytes Absolute Eosinophils Absolute Basophils Carbonic Acid 0.97 L HCO3/H2CO3 Ratio 22:1 ABG pH 7.45 ABG pCO2 32.2 L ABG pO2 57.5 L ABG HCO3 21.8 ABG Total CO2 22.8 ABG O2 Saturation 91.4 L ABG Base Excess -1.2 FiO2 45% Sodium Potassium Chloride Carbon Dioxide Anion Gap BUN Creatinine Est GFR ( Amer) Est GFR (Non-Af Amer) Glucose Lactic Acid 0.9 Calcium Total Bilirubin Direct Bilirubin Neonat Total Bilirubin Neonat Direct Bilirubin Neonat Indirect Bili AST ALT Alkaline Phosphatase Creatine Kinase Troponin I NT-Pro-B Natriuret Pep Total Protein Albumin Chest X-Ray 10/12/18 09:10 IMPRESSION: NO ACUTE RADIOGRAPHIC FINDING IN THE CHEST. Temp Pulse Resp BP Pulse Ox 99.1 F 111 H 25 H 133/82 H 93 10/12/18 09:03 10/12/18 09:03 10/12/18 10:01 10/12/18 10:01 10/12/18 10:01 10/12/18 11:34 47-year-old female with COPD, atrial fibrillation, hypertension, previous episodes of ventricular tachycardia with pacer presents with complaint of shortness of breath, vomiting and diarrhea. Patient states shortness of breath, vomiting and diarrhea started yesterday while at rest. Upon arrival patient is hypertensive, tachypneic, hypoxic. Lung exam is significant for crackles so initially patient got Lasix, nitro. Bedside ultrasound was performed and showed no significant B-lines. Treatment for COPD was then initiated and patient got breathing treatments, Solu-Medrol and was placed on BiPAP. Patient had a significant improvement of her tachypnea and hypoxia. On reevaluation she is resting comfortably. CBC is without leukocytosis or anemia. CMP is is without significant electrolyte abnormality. Chest x-ray shows no acute process. ABG does show hypoxia with a O2 saturation of 91%. I spoke to Dr. Gillette hospitalist regarding admission and he has agreed to admit the patient. Patient will be admitted to the [facility]. - Vital Signs Vital signs: Temp Pulse Resp BP Pulse Ox 99.1 F 111 H 25 H 133/82 H 93 10/12/18 09:03 10/12/18 09:03 10/12/18 10:01 10/12/18 10:01 10/12/18 10:01 - Laboratory Result Diagrams: 10/12/18 09:28 10/12/18 09:28 Laboratory results interpreted by me: 10/12/18 10/12/18 10/12/18 09:28 09:28 09:28 RDW 15.2 H Plt Count 137 L Seg Neutrophils % 85.6 H Lymphocytes % 7.2 L Absolute Neutrophils 8.3 H Carbonic Acid ABG pCO2 ABG pO2 ABG O2 Saturation Glucose 115 H Creatine Kinase 159 H NT-Pro-B Natriuret Pep 1130 H 10/12/18 09:40 RDW Plt Count Seg Neutrophils % Lymphocytes % Absolute Neutrophils Carbonic Acid 0.97 L ABG pCO2 32.2 L ABG pO2 57.5 L ABG O2 Saturation 91.4 L Glucose Creatine Kinase NT-Pro-B Natriuret Pep - Diagnostic Test Radiology reviewed: Image reviewed, Reports reviewed - EKG Interpretation by Me EKG shows normal: Sinus rhythm Rate: Normal Rhythm: NSR When compared to previous EKG there are: No significant change Discharge - Discharge Clinical Impression: COPD exacerbation, Respiratory distress Condition: Good Disposition: ADMITTED INPATIENT Admitting Provider: Leta (Hospitalist) Unit Admitted: [facility]
[2018-10-12 09:47] LABS: ABSOLUTE BASOPHILS # (AUTO) 0.1 10^3/uL (0.0-0.2); ABSOLUTE EOSINOPHILS # (AUTO) 0.1 10^3/uL (0.0-0.6); ABSOLUTE LYMPHOCYTES (AUTO) 0.7 10^3/uL (0.5-4.7); ABSOLUTE MONOCYTES (AUTO) 0.6 10^3/uL (0.1-1.4); ABSOLUTE NEUT (AUTO) 8.3 10^3/uL (1.7-8.2); BASOPHILS % (AUTO) 0.6 % (0-2); EOSINOPHILS % (AUTO) 0.8 % (0-6); HEMATOCRIT 42.1 % (36.0-47.0); HEMOGLOBIN 14.1 g/dL (12.0-15.5); LYMPHOCYTES % (AUTO) 7.2 % (13-45); MEAN CORPUSCULAR HEMOGLOBIN 27.9 pg (27.0-33.4); MEAN CORPUSCULAR HGB CONC 33.4 g/dL (32.0-36.0); MEAN CORPUSCULAR VOLUME 83 fl (80-97); MONOCYTES % (AUTO) 5.8 % (3-13); PLATELET COUNT 137 10^3/uL (150-450); RED BLOOD COUNT 5.04 10^6/uL (3.72-5.28); RED CELL DISTRIBUTION WIDTH 15.2 % (11.5-14.0); SEGMENTED NEUTROPHILS % (AUTO) 85.6 % (42-78); TOTAL CELLS COUNTED % (AUTO) 100 %; WHITE BLOOD COUNT 9.7 10^3/uL (4.0-10.5)
[2018-10-12] MEDS ORDERED: METHYLPREDNISOLONE INJ 125 MG/2 ML SDV IV ONE (09:48)
[2018-10-12] MEDS ORDERED: ONDANSETRON HCL INJ/PF 4 MG/2 ML SDV IV ONE (09:48)
[2018-10-12] MEDS ORDERED: ONDANSETRON HCL INJ/PF 4 MG/2 ML SDV ONE ×2 (09:52→09:53)
[2018-10-12 09:57] LABS: ARTERIAL BLOOD BASE EXCESS -1.2 mmol/L; ARTERIAL BLOOD H2CO3 0.97 mmol/L (1.05-1.35); ARTERIAL BLOOD HCO3 21.8 mmol/L (20-24); ARTERIAL BLOOD O2 SATURATION 91.4 % (94-98); ARTERIAL BLOOD PCO2 32.2 mmHg (35-45); ARTERIAL BLOOD PH 7.45 (7.35-7.45); ARTERIAL BLOOD PO2 57.5 mmHg (80-100); ARTERIAL BLOOD TOTAL CO2 22.8 mmol/L (21-25)
[2018-10-12 09:58] LABS: ARTERIAL BLOOD FIO2 45%
--- NOTE | 2018-10-12 10:11 | RADIOLOGY REPORT (SQ) ---
EXAM DESCRIPTION: CHEST SINGLE VIEW COMPLETED DATE/TIME: 10/12/2018 9:56 am REASON FOR STUDY: difficulty breathing COMPARISON: 06/18/2018 EXAM PARAMETERS: NUMBER OF VIEWS: One view. TECHNIQUE: Single frontal radiographic view of the chest acquired. RADIATION DOSE: NA LIMITATIONS: None. FINDINGS: LUNGS AND PLEURA: Chronic blunting of the left costophrenic angle. No infiltrate. MEDIASTINUM AND HILAR STRUCTURES: No masses. Contour normal. HEART AND VASCULAR STRUCTURES: Heart normal in size. Normal vasculature. BONES: No acute findings. HARDWARE: CABG. Pacemaker. OTHER: No other significant finding. IMPRESSION: NO ACUTE RADIOGRAPHIC FINDING IN THE CHEST. TECHNICAL DOCUMENTATION: JOB ID: [id number] [employer]- All Rights Reserved Reading location - IP/workstation name: [email or web address]
[2018-10-12 10:12] LABS: ALANINE AMINOTRANSFERASE 18 U/L (9-52); ALBUMIN 4.5 g/dL (3.5-5.0); ALKALINE PHOSPHATASE 101 U/L (38-126); ANION GAP 11 (5-19); ASPARTATE AMINO TRANSFERASE 19 U/L (14-36); BILIRUBIN,DIRECT 0.3 mg/dL (0.0-0.4); BLOOD UREA NITROGEN 7 mg/dL (7-20); CALCIUM 9.5 mg/dL (8.4-10.2); CARBON DIOXIDE 25 mmol/L (22-30); CHLORIDE 103 mmol/L (98-107); CREATINE KINASE 159 U/L (30-135); GLUCOSE 115 mg/dL (75-110); SODIUM 139.1 mmol/L (137-145)
[2018-10-12 10:26] LABS: TROPONIN I 0.056 ng/mL
--- NOTE | 2018-10-12 12:22 | PDOC H&P ---
History of Present Illness Admission Date/PCP: 10/12/18 11:29 History of Present Illness: SHAI BERMAN is a 47 year old female with a history of 2 valve replacements according to her, as well as being a current every day smoker, who presents with shortness of breath started yesterday. She has not had any fever but she has had a productive cough. She is not on any medications for breathing at home. She says that her breathing has gotten progressively worse since yesterday midmorning. She does not remember any particularly triggering event. She was in her usual state of health prior to yesterday morning. She says she smokes half a pack to a pack of cigarettes a day for well over 20 years. She says she takes an aspirin at home and 2 other pills "for my heart" but she does not know what they are. She said she uses [facility] for her pharmacy. She was noted to be hypoxic in the ER and having increased work of breathing and so was put on BiPAP. She was initially in atrial fibrillation but is now back into a sinus rhythm. She also has a pacemaker. Past Medical History Cardiac Medical History: Reports: Atrial Fibrillation, Hypertension, Other - Valve replacement Pulmonary Medical History: Reports: Chronic Obstructive Pulmonary Disease (COPD) Past Surgical History Past Surgical History: Reports: Cardiac Catheterization - valve replacement Social History Lives with: Family Smoking Status: Current Every Day Smoker Family History Family History: Reviewed & Not Pertinent Parental Family History Reviewed: Yes - Hypertension, coronary artery disease Children Family History Reviewed: Yes - Nothing known Sibling(s) Family History Reviewed.: Yes - Hypertension Medication/Allergy Home Medications: No Home Medications 10/12/18 Allergies/Adverse Reactions: No Known Allergies Allergy (Verified 10/12/18 09:00) Review of Systems All systems: reviewed and no additional remarkable complaints except as stated - All systems were reviewed and were negative except as noted in the HPI Physical Exam Vital Signs: Temp Pulse Resp BP Pulse Ox 99.1 F 111 H 25 H 133/82 H 93 10/12/18 09:03 10/12/18 09:03 10/12/18 10:01 10/12/18 10:01 10/12/18 10:01 Intake & Output 10/11/18 10/12/18 10/13/18 06:59 06:59 06:59 Output Total 600 Balance -600 Weight 89.6 kg General appearance: PRESENT: cooperative, disheveled, mild distress Head exam: PRESENT: atraumatic, normocephalic Eye exam: PRESENT: EOMI, PERRLA. ABSENT: conjunctival injection, nystagmus, scleral icterus Ear exam: PRESENT: normal external ear exam Mouth exam: PRESENT: dry mucosa, neck supple Teeth exam: PRESENT: poor dentation Throat exam: ABSENT: post pharyngeal erythema Neck exam: PRESENT: full ROM. ABSENT: carotid bruit, JVD, lymphadenopathy, meningismus, tenderness, thyromegaly Respiratory exam: PRESENT: accessory muscle use, prolonged expiratory phas, rhonchi, symmetrical, wheezes. ABSENT: chest wall tenderness, crackles, rales, tachypnea, unlabored Cardiovascular exam: PRESENT: RRR, +S1, +S2, systolic murmur - Harsh 3 out of 6 systolic murmur heard best at the left upper sternal border Pulses: PRESENT: normal carotid pulses Vascular exam: PRESENT: normal capillary refill GI/Abdominal exam: PRESENT: normal bowel sounds, soft. ABSENT: distended, guarding, rebound, tenderness Extremities exam: ABSENT: clubbing, pedal edema Musculoskeletal exam: PRESENT: normal inspection. ABSENT: deformity Neurological exam: PRESENT: alert, awake, oriented to person, oriented to place, oriented to time, oriented to situation, CN II-XII grossly intact. ABSENT: motor sensory deficit Psychiatric exam: PRESENT: appropriate affect, normal mood Skin exam: PRESENT: dry, warm Results Laboratory Results: 10/12/18 09:28 10/12/18 09:28 10/12/18 10/12/18 10/12/18 09:28 09:28 09:28 WBC 9.7 RBC 5.04 Hgb 14.1 Hct 42.1 MCV 83 MCH 27.9 MCHC 33.4 RDW 15.2 H Plt Count 137 L Seg Neutrophils % 85.6 H Lymphocytes % 7.2 L Monocytes % 5.8 Eosinophils % 0.8 Basophils % 0.6 Absolute Neutrophils 8.3 H Absolute Lymphocytes 0.7 Absolute Monocytes 0.6 Absolute Eosinophils 0.1 Absolute Basophils 0.1 Carbonic Acid HCO3/H2CO3 Ratio ABG pH ABG pCO2 ABG pO2 ABG HCO3 ABG O2 Saturation ABG Base Excess FiO2 Sodium 139.1 Potassium 4.0 Chloride 103 Carbon Dioxide 25 Anion Gap 11 BUN 7 Creatinine 0.69 Est GFR ( Amer) > 60 Est GFR (Non-Af Amer) > 60 Glucose 115 H Lactic Acid 0.9 Calcium 9.5 Total Bilirubin 1.0 AST 19 ALT 18 Alkaline Phosphatase 101 Total Protein 8.0 Albumin 4.5 10/12/18 09:40 WBC RBC Hgb Hct MCV MCH MCHC RDW Plt Count Seg Neutrophils % Lymphocytes % Monocytes % Eosinophils % Basophils % Absolute Neutrophils Absolute Lymphocytes Absolute Monocytes Absolute Eosinophils Absolute Basophils Carbonic Acid 0.97 L HCO3/H2CO3 Ratio 22:1 ABG pH 7.45 ABG pCO2 32.2 L ABG pO2 57.5 L ABG HCO3 21.8 ABG O2 Saturation 91.4 L ABG Base Excess -1.2 FiO2 45% Sodium Potassium Chloride Carbon Dioxide Anion Gap BUN Creatinine Est GFR ( Amer) Est GFR (Non-Af Amer) Glucose Lactic Acid Calcium Total Bilirubin AST ALT Alkaline Phosphatase Total Protein Albumin 10/12/18 10/12/18 09:28 09:28 Creatine Kinase 159 H Troponin I 0.056 NT-Pro-B Natriuret Pep 1130 H Impressions: Chest X-Ray 10/12/18 09:10 IMPRESSION: NO ACUTE RADIOGRAPHIC FINDING IN THE CHEST. Assessment and Plan - Diagnosis (1) Acute hypoxemic respiratory failure Is this a current diagnosis for this admission?: Yes Plan: Was on BiPAP in the ER for hypoxemia on room air, will take her off BiPAP after some breathing treatments to see if she can go on a nasal cannula (2) Atrial fibrillation Qualifiers: Atrial fibrillation type: paroxysmal Qualified Code(s): I48.0 - Paroxysmal atrial fibrillation Is this a current diagnosis for this admission?: Yes Plan: She has a pacemaker, but she does not take an anticoagulant at home that she knows of, but she does not know the names of the 2 medication she takes for her heart. She says the only 2 medicines she takes are those two plus an aspirin. She was initially in atrial fibrillation but by the time I got down to see her she was back in with sinus rhythm. (3) COPD exacerbation Is this a current diagnosis for this admission?: Yes Plan: IV steroids, nebulizer treatments, antibiotics, and supplemental O2. Strongly encouraged that she quit smoking. - Time Time Spent with patient: 60 minutes Time Spent with patient: 35 or more minutes - Inpatient Certification Based on my medical assessment, after consideration of the patient's c omorbidities, presenting symptoms, or acuity I expect that the services needed warrant INPATIENT care.: Yes I certify that my determination is in accordance with my understanding of Medicare's requirements for reasonable and necessary INPATIENT services [42 CFR 412.3e].: Yes Medical Necessity: Need Close Monitoring Due to Risk of Patient Decompensation, Need For Continuous Telemetry Monitoring, Need for Nebulizer Therapy and Monitoring of Response
--- NOTE | 2018-10-12 13:14 | EKG REPORT ---
SEVERITY:- NORMAL ECG - SINUS RHYTHM : Confirmed by: Van Pulliam MD 12-Oct-2018 13:13:09
[2018-10-12] MEDS: IPRATROPIUM/ALBUTEROL 0.5-2.5 MG/3 ML AMPUL NEB SCH ×2 (13:43→19:26)
[2018-10-12] MEDS: HEPARIN SOD (PORCINE) 5,000 UNIT/ML 1 ML SYRINGE SUBCUT SCH ×2 (14:19→21:43)
[2018-10-12] MEDS: METHYLPREDNISOLONE INJ 40 MG/1 ML SDV IV SCH (17:44)
[2018-10-12] MEDS: DOXYCYCLINE HYCLATE 100 MG TABLET PO SCH (21:43)
[2018-10-13] MEDS: IPRATROPIUM/ALBUTEROL 0.5-2.5 MG/3 ML AMPUL NEB SCH ×4 (01:52→20:07)
[2018-10-13] MEDS: METHYLPREDNISOLONE INJ 40 MG/1 ML SDV IV SCH ×3 (02:35→17:16)
[2018-10-13 05:47] LABS: HEMATOCRIT 39.3 % (36.0-47.0); HEMOGLOBIN 13.1 g/dL (12.0-15.5); MEAN CORPUSCULAR HGB CONC 33.4 g/dL (32.0-36.0); MEAN CORPUSCULAR VOLUME 84 fl (80-97); PLATELET COUNT 126 10^3/uL (150-450); RED BLOOD COUNT 4.69 10^6/uL (3.72-5.28); RED CELL DISTRIBUTION WIDTH 15.4 % (11.5-14.0); WHITE BLOOD COUNT 8.3 10^3/uL (4.0-10.5)
[2018-10-13 06:05] LABS: ANION GAP 10 (5-19); BLOOD UREA NITROGEN 18 mg/dL (7-20); CALCIUM 9.6 mg/dL (8.4-10.2); CARBON DIOXIDE 26 mmol/L (22-30); CHLORIDE 104 mmol/L (98-107); GLUCOSE 137 mg/dL (75-110); SODIUM 139.9 mmol/L (137-145)
[2018-10-13] MEDS: HEPARIN SOD (PORCINE) 5,000 UNIT/ML 1 ML SYRINGE SUBCUT SCH ×3 (06:17→21:35)
[2018-10-13] MEDS: DOXYCYCLINE HYCLATE 100 MG TABLET PO SCH ×2 (09:08→21:35)
--- NOTE | 2018-10-13 17:00 | PDOC PROGRESS REPORT ---
Subjective Progress Note for:: 10/13/18 Subjective:: This is 47 years old black female patient who is a cardiac nurse by profession presents with past medical history of atrial fibrillation, hypertension, COPD and history of valve replacement presents with chief complaint of shortness of breath. Her BNP is 1100 chest x-ray reported as no acute cardiopulmonary pathology. Patient is being managed as a case of COPD exacerbation and acute hypoxemic respiratory failure. Telemetry patient was managed with BiPAP and as her condition is improved the BiPAP has been discontinued. Morning I seen patient resting in bed comfortably. She reported her shortness of breath has been subsiding. If she remains stable patient's potential discharge for tomorrow Reason For Visit: AECOPD,ACUTE HYPOXIC RESPIRATORY FAILURE Physical Exam Vital Signs: Temp Pulse Resp BP Pulse Ox 98.4 F 60 18 110/69 94 10/13/18 15:45 10/13/18 15:45 10/13/18 15:45 10/13/18 15:45 10/13/18 15:45 Intake & Output 10/12/18 10/13/18 10/14/18 06:59 06:59 06:59 Intake Total 860 1025 Output Total 800 Balance 60 1025 Weight 90 kg General appearance: PRESENT: no acute distress Head exam: PRESENT: atraumatic Eye exam: PRESENT: conjunctiva pink Mouth exam: PRESENT: moist Neck exam: ABSENT: carotid bruit, JVD, lymphadenopathy, thyromegaly Respiratory exam: PRESENT: clear to auscultation tomasa. ABSENT: rales, rhonchi, wheezes Cardiovascular exam: PRESENT: diastolic murmur - He has grade 3/6 early diastolic murmur best heard at his right second interspace. Neurological exam: PRESENT: alert, awake, oriented to time, oriented to situation Results Laboratory Results: 10/13/18 04:46 10/13/18 04:46 10/12/18 10/13/18 10/13/18 18:37 04:46 04:46 WBC 8.3 RBC 4.69 Hgb 13.1 Hct 39.3 MCV 84 MCH 28.0 MCHC 33.4 RDW 15.4 H Plt Count 126 L Sodium 139.9 Potassium 4.0 Chloride 104 Carbon Dioxide 26 Anion Gap 10 BUN 18 Creatinine 0.76 Est GFR ( Amer) > 60 Est GFR (Non-Af Amer) > 60 Glucose 137 H Calcium 9.6 Magnesium 1.8 10/12/18 10/12/18 09:28 09:28 Creatine Kinase 159 H Troponin I 0.056 NT-Pro-B Natriuret Pep 1130 H Impressions: Chest X-Ray 10/12/18 09:10 IMPRESSION: NO ACUTE RADIOGRAPHIC FINDING IN THE CHEST. Assessment and Plan - Diagnosis (1) Acute hypoxemic respiratory failure Is this a current diagnosis for this admission?: Yes Plan: Continue current regimen. (2) Atrial fibrillation Qualifiers: Atrial fibrillation type: paroxysmal Qualified Code(s): I48.0 - Paroxysmal atrial fibrillation Is this a current diagnosis for this admission?: Yes Plan: We will put her on aspirin. Heart rate is controlled. (3) COPD exacerbation Is this a current diagnosis for this admission?: Yes Plan: Continue current regimen. (4) Hypertension Qualifiers: Hypertension type: essential hypertension Qualified Code(s): I10 - Essential (primary) hypertension Is this a current diagnosis for this admission?: Yes Plan: Continue home medication. (5) H/O heart valve replacement with bioprosthetic valve Is this a current diagnosis for this admission?: Yes Plan: Patient is not on anticoagulation most probably she has bioprosthetic valve.
[2018-10-14] MEDS: IPRATROPIUM/ALBUTEROL 0.5-2.5 MG/3 ML AMPUL NEB SCH ×3 (01:54→13:25)
[2018-10-14] MEDS: METHYLPREDNISOLONE INJ 40 MG/1 ML SDV IV SCH ×2 (02:02→09:45)
[2018-10-14 05:12] LABS: HEMATOCRIT 40.3 % (36.0-47.0); HEMOGLOBIN 13.1 g/dL (12.0-15.5); MEAN CORPUSCULAR HEMOGLOBIN 27.5 pg (27.0-33.4); MEAN CORPUSCULAR HGB CONC 32.5 g/dL (32.0-36.0); MEAN CORPUSCULAR VOLUME 85 fl (80-97); PLATELET COUNT 125 10^3/uL (150-450); RED BLOOD COUNT 4.75 10^6/uL (3.72-5.28); RED CELL DISTRIBUTION WIDTH 15.5 % (11.5-14.0); WHITE BLOOD COUNT 12.1 10^3/uL (4.0-10.5)
[2018-10-14 05:22] LABS: ANION GAP 7 (5-19); BLOOD UREA NITROGEN 22 mg/dL (7-20); CALCIUM 9.2 mg/dL (8.4-10.2); CARBON DIOXIDE 28 mmol/L (22-30); CHLORIDE 105 mmol/L (98-107); GLUCOSE 125 mg/dL (75-110); POTASSIUM 4.2 mmol/L (3.6-5.0); SODIUM 139.6 mmol/L (137-145)
[2018-10-14] MEDS: HEPARIN SOD (PORCINE) 5,000 UNIT/ML 1 ML SYRINGE SUBCUT SCH (06:07)
--- NOTE | 2018-10-14 09:19 | PDOC DISCHARGE SUMMARY ---
General - Admit/Disc Date/PCP Admission Date/Primary Care Provider: 10/12/18 11:29 Discharge Date: 10/14/18 - Discharge Diagnosis (1) Acute hypoxemic respiratory failure Is this a current diagnosis for this admission?: Yes (2) Atrial fibrillation Is this a current diagnosis for this admission?: Yes (3) COPD exacerbation Is this a current diagnosis for this admission?: Yes (4) Hypertension Is this a current diagnosis for this admission?: Yes (5) H/O heart valve replacement with bioprosthetic valve Is this a current diagnosis for this admission?: Yes - Additional Information Home Medications: No Home Medications 10/12/18 History of Present Illness History of Present Illness: SHAI BERMAN is a 47 year old female with a history of 2 valve replacements according to her, as well as being a current every day smoker, who presents with shortness of breath started yesterday. She has not had any fever but she has had a productive cough. She is not on any medications for breathing at home. She says that her breathing has gotten progressively worse since yesterday midmorning. She does not remember any particularly triggering event. She was in her usual state of health prior to yesterday morning. She says she smokes half a pack to a pack of cigarettes a day for well over 20 years. She says she takes an aspirin at home and 2 other pills "for my heart" but she does not know what they are. She said she uses [facility] for her pharmacy. She was noted to be hypoxic in the ER and having increased work of breathing and so was put on BiPAP. She was initially in atrial fibrillation but is now back into a sinus rhythm. She also has a pacemaker. 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 Her BNP is 1100 chest x-ray reported as no acute cardiopulmonary pathology. Patient is being managed as a case of COPD exacerbation and acute hypoxemic respiratory failure. patient was managed with BiPAP and as her condition improved the BiPAP had been discontinued and switched to oxygen via nasal cannula. Her condition has improved remarkably. This morning patient seen and examined at bedside. She is awake alert oriented. She is not in pain or distress. Patient encouraged and counseled to quit smoking and she voices agreement. I will send her home with albuterol sulfate inhaler, Lasix 40 mg p.o. daily and prednisone 40 mg p.o. daily for 5 days. Patient advised to follow-up with her primary care physician. Physical Exam Vital Signs: Temp Pulse Resp BP Pulse Ox 98.1 F 65 20 111/51 L 97 10/14/18 08:12 10/14/18 08:12 10/14/18 08:12 10/14/18 08:12 10/14/18 08:12 Intake & Output 10/13/18 10/14/18 10/15/18 06:59 06:59 06:59 Intake Total 860 1025 Output Total 800 0 Balance 60 1025 Weight 90 kg 90 kg General appearance: PRESENT: no acute distress Head exam: PRESENT: atraumatic Eye exam: PRESENT: conjunctiva pink Respiratory exam: PRESENT: clear to auscultation tomasa. ABSENT: rales, rhonchi, wheezes Cardiovascular exam: PRESENT: diastolic murmur GI/Abdominal exam: PRESENT: normal bowel sounds, soft. ABSENT: distended, guarding, mass, organolmegaly, rebound, tenderness Neurological exam: PRESENT: alert, awake, oriented to time, oriented to situation Results Laboratory Results: 10/14/18 04:38 10/14/18 04:38 10/14/18 10/14/18 04:38 04:38 WBC 12.1 H RBC 4.75 Hgb 13.1 Hct 40.3 MCV 85 MCH 27.5 MCHC 32.5 RDW 15.5 H Plt Count 125 L Sodium 139.6 Potassium 4.2 Chloride 105 Carbon Dioxide 28 Anion Gap 7 BUN 22 H Creatinine 0.67 Est GFR ( Amer) > 60 Est GFR (Non-Af Amer) > 60 Glucose 125 H Calcium 9.2 10/12/18 10/12/18 09:28 09:28 Creatine Kinase 159 H Troponin I 0.056 NT-Pro-B Natriuret Pep 1130 H Impressions: Chest X-Ray 10/12/18 09:10 IMPRESSION: NO ACUTE RADIOGRAPHIC FINDING IN THE CHEST. Qualifiers - * PATIENT BEING DISCHARGED WITH ANY OF THE FOLLOWING DIAGNOSIS: No Acute Heart Failure Is this a Heart Failure Patient?: No
[2018-10-14] MEDS: DOXYCYCLINE HYCLATE 100 MG TABLET PO SCH (09:45)
[2018-10-14 12:31] VITALS: BP 110/56
== END 2018-10-14 13:00 | disposition home or self-care (01) | DRG 190 ==
LOC: ER 09:00 → EH 11:29 → 3N 13:25
PROVIDERS: ADMIT Family Medicine; ATTEND Family Medicine
PROC: 5A09457 Assistance with Respiratory Ventilation, 24-96 Consecutive Hours, Continuous Positive Airway Pressure (ICD-10-PCS; principal; 2018-10-12)
DX: J44.1 Chronic obstructive pulmonary disease with (acute) exacerbation (principal); J96.01 Acute respiratory failure with hypoxia; I10 Essential (primary) hypertension; I48.0 Paroxysmal atrial fibrillation; F17.210 Nicotine dependence, cigarettes, uncomplicated; Z95.2 Presence of prosthetic heart valve; Z79.82 Long term (current) use of aspirin; Z82.49 Family history of ischemic heart disease and other diseases of the circulatory system; Z95.0 Presence of cardiac pacemaker
CPT/HCPCS: 36415; 71045; 80048; 80053; 82550; 82803; 83605; 83735; 83880; 84484; 85025; 85027; 87070; 87077; 87205; 93005; 93010; 94640; 94660; 96374; 96375; 99285; J1644; J1940; J2405; J2920; J2930; J7620

== ENCOUNTER 2019-05-07 17:03 | Observation (INO) | payer OTHER ==
--- NOTE | 2019-05-07 17:53 | ER Document Report ---
ED Medical Screen (RME) - General Chief Complaint: Chest Pain Stated Complaint: CHEST PAIN, RIGHT ARM PAIN Time Seen by Provider: 05/07/19 17:49 Mode of Arrival: Ambulatory Information source: Patient Notes: 48-year-old female presented to ED for right upper chest pain. She does have a history of a pacemaker and pork heart valve replacement. She states the pain started about an hour ago. She denies any injuries that would cause her pain. She is alert oriented respirations regular nonlabored speaking in full sentences. She has not used any Tylenol or Motrin for the discomfort. She s tates she no longer takes the blood thinners. She does not have any history of high blood pressure or cholesterol. I have greeted and performed a rapid initial assessment of this patient. A com prehensive ED assessment and evaluation of the patient, analysis of test results and completion of medical decision making process will be conducted by an additional ED providers. TRAVEL OUTSIDE OF THE [place] IN LAST 30 DAYS: No - Related Data Allergies/Adverse Reactions: No Known Allergies Allergy (Verified 10/12/18 09:00) Past Medical History - Past Medical History Cardiac Medical History: Reports: Hx Atrial Fibrillation, Hx Hypertension Pulmonary Medical History: Reports: Hx COPD Renal/ Medical History: Denies: Hx Peritoneal Dialysis Past Surgical History: Reports: Hx Cardiac Catheterization - valve replacement, Hx Cardiac Surgery - artificial mitral and aortic valves, 2012 - Immunizations Immunizations up to date: Yes Hx Diphtheria, Pertussis, Tetanus Vaccination: Yes Physical Exam - Vital signs Vitals: Temp Pulse Resp BP Pulse Ox 98.3 F 60 16 150/72 H 98 05/07/19 17:45 05/07/19 17:45 05/07/19 17:45 05/07/19 17:45 05/07/19 17:45 Course - Vital Signs Vital signs: Temp Pulse Resp BP Pulse Ox 98.3 F 60 16 150/72 H 98 05/07/19 17:45 05/07/19 17:45 05/07/19 17:45 05/07/19 17:45 05/07/19 17:45
[2019-05-07] MEDS ORDERED: ASPIRIN 81 MG TABLET, CHEWABLE PO ONE (18:04)
[2019-05-07 18:34] LABS: ABSOLUTE BASOPHILS # (AUTO) 0.1 10^3/uL (0.0-0.2); ABSOLUTE EOSINOPHILS # (AUTO) 0.5 10^3/uL (0.0-0.6); ABSOLUTE LYMPHOCYTES (AUTO) 1.5 10^3/uL (0.5-4.7); ABSOLUTE MONOCYTES (AUTO) 0.5 10^3/uL (0.1-1.4); BASOPHILS % (AUTO) 1.1 % (0-2); EOSINOPHILS % (AUTO) 9.2 % (0-6); HEMATOCRIT 40.5 % (36.0-47.0); HEMOGLOBIN 13.4 g/dL (12.0-15.5); LYMPHOCYTES % (AUTO) 26.3 % (13-45); MEAN CORPUSCULAR HEMOGLOBIN 28.3 pg (27.0-33.4); MEAN CORPUSCULAR HGB CONC 33.1 g/dL (32.0-36.0); MEAN CORPUSCULAR VOLUME 86 fl (80-97); MONOCYTES % (AUTO) 8.7 % (3-13); PLATELET COUNT 139 10^3/uL (150-450); RED BLOOD COUNT 4.73 10^6/uL (3.72-5.28); RED CELL DISTRIBUTION WIDTH 15.2 % (11.5-14.0); SEGMENTED NEUTROPHILS % (AUTO) 54.7 % (42-78); TOTAL CELLS COUNTED % (AUTO) 100 %; WHITE BLOOD COUNT 5.5 10^3/uL (4.0-10.5)
[2019-05-07 19:00] LABS: ALKALINE PHOSPHATASE 95 U/L (38-126); ANION GAP 8 (5-19); ASPARTATE AMINO TRANSFERASE 18 U/L (14-36); BILIRUBIN,DIRECT 0.2 mg/dL (0.0-0.4); BILIRUBIN,TOTAL 0.6 mg/dL (0.2-1.3); BLOOD UREA NITROGEN 11 mg/dL (7-20); CALCIUM 9.2 mg/dL (8.4-10.2); CARBON DIOXIDE 26 mmol/L (22-30); CHLORIDE 107 mmol/L (98-107); GLUCOSE 77 mg/dL (75-110)
--- NOTE | 2019-05-07 19:02 | RADIOLOGY REPORT (SQ) ---
EXAM DESCRIPTION: CHEST 2 VIEWS COMPLETED DATE/TIME: 05/07/2019 6:34 pm REASON FOR STUDY: chest pain COMPARISON: 10/12/2018 EXAM PARAMETERS: NUMBER OF VIEWS: two views TECHNIQUE: Digital Frontal and Lateral radiographic views of the chest acquired. RADIATION DOSE: NA LIMITATIONS: Over exposure on lateral radiograph FINDINGS: LUNGS AND PLEURA: Chronic blunting of the left costophrenic angle. The lungs are otherwis e clear and evenly aerated. No pneumothorax. MEDIASTINUM AND HILAR STRUCTURES: No masses or contour abnormalities. HEART AND VASCULAR STRUCTURES: Heart normal size. No evidence for failure. BONES: No acute findings. HARDWARE: Midline surgical changes and transvenous pacer. OTHER: No other significant finding. IMPRESSION: Lateral radiograph limited by suboptimal technique. No evidence of acute cardiopulmonar y abnormality. TECHNICAL DOCUMENTATION: JOB ID: [id number]- All Rights Reserved Reading location - IP/workstation name: [email or web address]
[2019-05-07 19:11] LABS: NT PRO BNP 168 pg/mL (<125); TROPONIN I < 0.012 ng/mL
--- NOTE | 2019-05-07 19:27 | EKG REPORT ---
SEVERITY:- ABNORMAL ECG - SINUS RHYTHM FIRST DEGREE AV BLOCK : Confirmed by: Porsche Mason MD 07-May-2019 19:26:52
[2019-05-07] MEDS ORDERED: ASPIRIN 81 MG TABLET, CHEWABLE ONE (20:47)
--- NOTE | 2019-05-07 20:49 | ER Document Report ---
ED Cardiac - General Chief Complaint: Chest Pain Stated Complaint: CHEST PAIN, RIGHT ARM PAIN Time Seen by Provider: 05/07/19 17:49 Mode of Arrival: Ambulatory Notes: Patient is a 48-year-old female that comes emergency department for chief complaint of pain in the center of her chest that radiates towards the right si de of her chest and she also states she felt a tingling sensation in her right arm. She states this happened just prior to arrival while she was lying in bed and has happened intermittently since then. It comes and goes quickly. She denies associated nausea, vomiting, fever/chills, cough, shortness of breath, dizziness. Past medical history includes porcine heart valves in the mitral and aortic valves, AICD placement, tobacco abuse, COPD, hypertension, hyperlipidemia, and paroxysmal atrial fibrillation. Her kelp gatherer is in [place] and she cannot recall the name. TRAVEL OUTSIDE OF THE [place] IN LAST 30 DAYS: No - Related Data Allergies/Adverse Reactions: No Known Allergies Allergy (Verified 10/12/18 09:00) Past Medical History - General Information source: Patient - Social History Smoking Status: Current Every Day Smoker Frequency of alcohol use: None Drug Abuse: None Lives with: Family Family History: Reviewed & Not Pertinent Patient has suicidal ideation: No Patient has homicidal ideation: No - Past Medical History Cardiac Medical History: Reports: Hx Atrial Fibrillation, Hx Hypertension Pulmonary Medical History: Reports: Hx COPD Renal/ Medical History: Denies: Hx Peritoneal Dialysis Past Surgical History: Reports: Hx Cardiac Catheterization - valve replacement, Hx Cardiac Surgery - artificial mitral and aortic valves, 2012 - Immunizations Immunizations up to date: Yes Hx Diphtheria, Pertussis, Tetanus Vaccination: Yes Review of Systems - Review of Systems Constitutional: No symptoms reported EENT: No symptoms reported Cardiovascular: See HPI Respiratory: No symptoms reported Gastrointestinal: No symptoms reported Genitourinary: No symptoms reported Female Genitourinary: No symptoms reported Musculoskeletal: See HPI Skin: No symptoms reported Hematologic/Lymphatic: No symptoms reported Neurological/Psychological: No symptoms reported Physical Exam - Vital signs Vitals: Temp Pulse Resp BP Pulse Ox 98.3 F 60 16 150/72 H 98 05/07/19 17:45 05/07/19 17:45 05/07/19 17:45 05/07/19 17:45 05/07/19 17:45 - Notes Notes: GENERAL: Alert, interacts well. No acute distress. HEAD: Normocephalic, atraumatic. EYES: Pupils equal, round, and reactive to light. Extraocular movements intact. ENT: Oral mucosa moist, tongue midline. Oropharynx unremarkable. Airway patent. NECK: Full range of motion. Supple. Trachea midline. LUNGS: Clear to auscultation bilaterally, no wheezes, rales, or rhonchi. No respiratory distress. No tenderness noted with palpation over the chest. HEART: Regular rate and rhythm. Loud 3/6 murmur heard throughout ABDOMEN: Soft, non-tender. Non-distended. Bowel sounds present in all 4 quadrants. GENITOURINARY: Deferred EXTREMITIES: Moves all 4 extremities spontaneously. No edema, normal radial and dorsalis pedis pulses bilaterally. No cyanosis. BACK: no cervical, thoracic, lumbar midline tenderness. No saddle anesthesia, normal distal neurovascular exam. Moves all extremities in full range of motion. NEUROLOGICAL: Alert and oriented x3. Normal speech. Cranial nerves II through XII grossly intact. PSYCH: Normal affect, normal mood. SKIN: Warm, dry, normal turgor. No rashes or lesions noted. Course - Re-evaluation Re-evalutation: Patient is chest pain-free on my evaluation. CBC, chemistry unremarkable, chest x-ray unremarkable, EKG without acute changes. Troponins are negative. Based on patient's medication noncompliance, symptoms, concerning previous history I discussed with Dr. Livingston, he recommends admission to the hospital for telemetry observation for chest pain rule out. I discussed this with patient and she is very agreeable with this. She reportedly does not see any primary care regularly and runs out of her medications as well. She cannot tell me the name of her kelp gatherer in [place]. Discussed with Dr. Hernandez, hospitalist, patient accepted to telemetry observation - Vital Signs Vital signs: Temp Pulse Resp BP Pulse Ox 98.1 F 59 L 17 125/61 95 05/08/19 02:33 05/08/19 02:33 05/08/19 02:33 05/08/19 02:33 05/08/19 02:33 - Laboratory Result Diagrams: 05/07/19 18:20 05/07/19 18:20 Laboratory results interpreted by me: 05/07/19 05/07/19 18:20 18:20 RDW 15.2 H Plt Count 139 L Eos % (Auto) 9.2 H NT-Pro-B Natriuret Pep 168 H - EKG Interpretation by Me Additional EKG results interpreted by me: EKG shows sinus rhythm at a rate of 63, normal axis, no T wave inversions or ST segment changes in consecutive leads. QTC of 447. OK interval of 244 consistent with first-degree heart block. Discharge - Discharge Clinical Impression: Chest pain Qualifiers: Chest pain type: unspecified Qualified Code(s): R07.9 - Chest pain, unspecified Condition: Stable Disposition: ADMITTED OBSERVATION Admitting Provider: David (Hospitalist) Unit Admitted: Telemetry
[2019-05-08] MEDS ORDERED: MAG HYDROX/AL HYDROX/SIMETH SUSP 30 ML UDCUP PO PRN (00:59)
[2019-05-08] MEDS ORDERED: LEVALBUTEROL HCL NEB 0.63 MG/3 ML AMPUL NEB PRN (00:59)
[2019-05-08] MEDS ORDERED: ONDANSETRON HCL INJ/PF 4 MG/2 ML SDV IV PRN (00:59)
[2019-05-08] MEDS ORDERED: MAGNESIUM HYDROXIDE SUSP 30 ML UDCUP PO PRN (00:59)
[2019-05-08] MEDS ORDERED: DEXTROSE 50%-WATER 25 GM/50 ML DISP.SYRIN IV PRN ×2 (01:03)
[2019-05-08] MEDS ORDERED: GLUCAGON,HUMAN RECOMB 1 MG INJ IM PRN (01:03)
[2019-05-08] MEDS ORDERED: ACETAMINOPHEN 325 MG TABLET PO PRN (01:03)
[2019-05-08] MEDS ORDERED: DEXTROSE 40% GEL 15 GM TUBE PO PRN ×2 (01:03)
[2019-05-08] MEDS ORDERED: NICOTINE 21 MG/24 HR PATCH.TD24 TD PRN (01:03)
[2019-05-08] MEDS ORDERED: INSULIN REG, HUMAN 100 UNIT/ML 3 ML VIAL (PYX) SUBCUT PRN (01:03)
--- NOTE | 2019-05-08 04:31 | PDOC H&P ---
History of Present Illness Admission Date/PCP: 05/08/2019 00:37 No local PCP Patient complains of: Chest pain History of Present Illness: SHAI BERMAN is a 48 year old female who presented to the emergency room with acute chest pain. She admits developing moderately intense central chest sharp pain radiating into the right side of her chest and associated with a tingling sensation going down her right arm, earlier in the evening while resting in bed after she got home from work. The pain lasted for a few seconds and rapidly resolved spontaneously. She then redeveloped the pain and again it lasted for a few seconds and resolved spontaneously. The pain continued to recur at unrelat ed and unpredictable intervals causing her to come to the emergency room. She denies other associated or accompanying signs and symptoms. She denies prior similar episodes. She has not identified any aggravating or ameliorating factors for her chest pain. In the emergency room she was found to have an EKG and cardiac enzymes which showed no evidence of acute myocardial injury or ischemia. She was also noted to have a history of mitral and aortic porcine valve replacement and multiple risk factors including tobacco abuse, hypertension, hyperlipidemia and paroxysmal atrial fibrillation. She generally sees a instrument inspector in [place]. She was subsequently admitted hospital on observation status for further evaluation and treatment. 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 Denies: Congestive Heart Failure, Coronary Artery Disease, Myocardial Infarction Pulmonary Medical History: Reports: Chronic Obstructive Pulmonary Disease (COPD) Denies: Asthma, Respiratory Failure EENT Medical History: Denies: Cataracts, Ears - Hearing aids Neurological Medical History: Denies: Hemorrhagic CVA, Ischemic CVA, Seizures Endocrine Medical History: Reports: Obesity Denies: Diabetes Mellitus Type 1, Diabetes Mellitus Type 2, Hyperthyroidism, Hypothyroidism Renal/ Medical History: Denies: Chronic Kidney Disease, Nephrolithiasis Malignancy Medical History: Reports: None GI Medical History: Denies: Cirrhosis, Crohn's Disease, Gastroesophageal Reflux Disease, Hepatitis, Ulcerative Colitis Musculoskeltal Medical History: Denies: Arthritis, Gout Skin Medical History: Denies: Eczema, Psoriasis Psychiatric Medical History: Reports: Tobacco Dependency Denies: Alcohol Dependency, Substance Abuse Traumatic Medical History: Reports: None Hematology: Denies: Anemia, Bleeding Tendencies Infectious Medical History: Reports: None Past Surgical History Past Surgical History: Reports: Cardiac Catheterization, Internal Defibrillator, Valve Replacement - Porcine aortic and mitral valve replacements Social History Information Source: Patient Lives with: Friend Smoking Status: Current Every Day Smoker Electronic Cigarette use?: No Frequency of Alcohol Use: None Hx Recreational Drug Use: No Drugs: None Hx Prescription Drug Abuse: No - Advance Directive Resuscitation Status: Full Code Surrogate healthcare decision maker:: Francesconitin Zakia Family History Family History: Hypertension. denies: CAD, DM, Malignancy Parental Family History Reviewed: Yes Children Family History Reviewed: No Sibling(s) Family History Reviewed.: Yes Medication/Allergy Home Medications: Albuterol Sulfate [Albuterol Sulfate Hfa] 8.5 gm IH Q6 #1 hfa.aer.[id number] 10/14/18 Furosemide [Lasix 40 mg Tablet] 40 mg PO QAM #30 tablet 10/14/18 Prednisone [Deltasone 20 mg Tablet] 40 mg PO DAILY 5 Days #10 tablet 10/14/18 Allergies/Adverse Reactions: No Known Allergies Allergy (Verified 10/12/18 09:00) Review of Systems Constitutional: ABSENT: chills, fever(s) Eyes: ABSENT: visual disturbances, other - Eye pain Ears: ABSENT: hearing changes, other - Ear pain Nose, Mouth, and Throat: ABSENT: headache(s), mouth pain, sore throat Cardiovascular: PRESENT: as per HPI, chest pain. ABSENT: dyspnea on exertion, edema, orthropnea, palpitations Respiratory: ABSENT: cough, dyspnea Gastrointestinal: ABSENT: abdominal pain, constipation, diarrhea, nausea, vomiting Genitourinary: ABSENT: dysuria, hematuria Musculoskeletal: ABSENT: back pain, joint swelling Integumentary: ABSENT: pruritus, rash Neurological: ABSENT: confusion, convulsions, focal weakness, memory loss, syncope Psychiatric: ABSENT: anxiety, hallucinations Endocrine: ABSENT: cold intolerance, heat intolerance Hematologic/Lymphatic: ABSENT: easy bleeding, easy bruising Allergic/Immunologic: ABSENT: seasonal rhinorrhea Physical Exam Vital Signs: Temp Pulse Resp BP Pulse Ox 98.3 F 60 18 123/65 98 05/07/19 17:45 05/07/19 17:45 05/07/19 22:01 05/07/19 22:01 05/07/19 22:01 Intake & Output 05/06/19 05/07/19 05/08/19 23:59 23:59 23:59 Weight 87.6 kg General appearance: PRESENT: no acute distress, cooperative Head exam: PRESENT: atraumatic, normocephalic Eye exam: PRESENT: conjunctiva pink. ABSENT: conjunctival injection, scleral icterus Ear exam: PRESENT: normal external ear exam. ABSENT: bleeding, drainage Mouth exam: PRESENT: dry mucosa, neck supple Neck exam: ABSENT: thyromegaly, tracheal deviation Respiratory exam: PRESENT: clear to auscultation tomasa, symmetrical, unlabored Cardiovascular exam: PRESENT: RRR. ABSENT: clicks, gallop, rubs Pulses: PRESENT: normal radial pulses, normal dorsalis pedis pul Vascular exam: PRESENT: normal capillary refill. ABSENT: pallor GI/Abdominal exam: PRESENT: normal bowel sounds, soft Rectal exam: PRESENT: deferred Extremities exam: ABSENT: joint swelling, pedal edema Musculoskeletal exam: ABSENT: deformity, dislocation Neurological exam: PRESENT: alert, oriented to person, oriented to place, oriented to time, oriented to situation, CN II-XII grossly intact. ABSENT: motor sensory deficit Psychiatric exam: PRESENT: appropriate affect, normal mood Skin exam: PRESENT: dry, intact, warm. ABSENT: jaundice, rash, urticaria Results Laboratory Results: 05/07/19 18:20 05/07/19 18:20 05/07/19 05/07/19 18:20 18:20 WBC 5.5 RBC 4.73 Hgb 13.4 Hct 40.5 MCV 86 MCH 28.3 MCHC 33.1 RDW 15.2 H Plt Count 139 L Seg Neutrophils % 54.7 Sodium 141.2 Potassium 4.0 Chloride 107 Carbon Dioxide 26 Anion Gap 8 BUN 11 Creatinine 0.69 Est GFR ( Amer) > 60 Glucose 77 Calcium 9.2 Magnesium 1.9 Total Bilirubin 0.6 AST 18 Alkaline Phosphatase 95 Total Protein 7.0 Albumin 4.0 05/07/19 05/07/19 18:20 22:18 Troponin I < 0.012 < 0.012 NT-Pro-B Natriuret Pep 168 H Impressions: Chest X-Ray 05/07/19 18:04 IMPRESSION: Lateral radiograph limited by suboptimal technique. No evidence of acute cardiopulmonary abnormality. Assessment and Plan - Diagnosis (1) Chest pain Qualifiers: Chest pain type: unspecified Qualified Code(s): R07.9 - Chest pain, unspecified Is this a current diagnosis for this admission?: Yes (2) Chronic obstructive pulmonary disease Qualifiers: COPD type: unspecified COPD Qualified Code(s): J44.9 - Chronic obstructive pulmonary disease, unspecified Is this a current diagnosis for this admission?: Yes (3) Paroxysmal atrial fibrillation Is this a current diagnosis for this admission?: Yes (4) Hypertension Qualifiers: Hypertension type: essential hypertension Qualified Code(s): I10 - Essential (primary) hypertension Is this a current diagnosis for this admission?: Yes (5) H/O heart valve replacement with bioprosthetic valve Is this a current diagnosis for this admission?: Yes (6) Obesity (BMI 30-39.9) Is this a current diagnosis for this admission?: Yes (7) Tobacco use disorder, severe, dependence Is this a current diagnosis for this admission?: Yes - Plan Summary Summary: Patient is admitted to medical floor in a telemetry bed where she will receive routine supportive and symptomatic cares. Serial cardiac enzymes will be obtained for evaluation of her chest pain. She will be placed on a cardiac and diabetic diet and before meals and at bedtime Accu-Cheks will be performed with sliding scale insulin for hyperglycemia and a hypoglycemic protocol in place. She will be continued on her usual home medications once her medication reconciliation has been verified and completed. A nicotine replacement patch is available for the patient's use, if desired. Smoking cessation is advised and counseled briefly at the bedside. - Time Time Spent with patient: 15-24 minutes Smoking Cessation Education: 3 to 10 minutes Medications reviewed and adjusted accordingly: Yes Anticipated discharge: Home Within: within 36 hours - Inpatient Certification Based on my medical assessment, after consideration of the patient's comorbidities, presenting symptoms, or acuity I expect that the services needed warrant INPATIENT care.: No I certify that my determination is in accordance with my understanding of Medicare's requirements for reasonable and necessary INPATIENT services [42 CFR 412.3e].: No Medical Necessity: Significant Comorbidiites Make Outpatient Treatment Too Risky, Need For Continuous Telemetry Monitoring
[2019-05-08 05:40] LABS: CREATINE KINASE MB 0.64 ng/mL (<4.55)
[2019-05-08 05:50] LABS: TROPONIN I < 0.012 ng/mL
[2019-05-08] MEDS ORDERED: HEPARIN SOD (PORCINE) 5,000 UNIT/ML 1 ML VIAL SUBCUT SCH (06:00)
[2019-05-08 09:47] VITALS: BP 125/61
[2019-05-08] MEDS ORDERED: FAMOTIDINE 20 MG TABLET PO SCH (10:00)
[2019-05-08] MEDS ORDERED: DOCUSATE SODIUM 100 MG CAPSULE PO SCH (10:00)
--- NOTE | 2019-05-08 13:39 | PDOC DISCHARGE SUMMARY ---
Impression - Admit/DC Date/PCP Admission Date/Primary Care Provider: 05/08/19 00:37 Discharge Date: 05/08/19 - Discharge Diagnosis (1) Chest pain Is this a current diagnosis for this admission?: Yes (2) Chronic obstructive pulmonary disease Is this a current diagnosis for this admission?: Yes (3) H/O heart valve replacement with bioprosthetic valve Is this a current diagnosis for this admission?: Yes (4) Hypertension Is this a current diagnosis for this admission?: Yes (5) Obesity (BMI 30-39.9) Is this a current diagnosis for this admission?: Yes (6) Tobacco use disorder, severe, dependence Is this a current diagnosis for this admission?: Yes - Additional Information Resuscitation Status: Full Code Discharge Diet: Regular Discharge Activity: Activity As Tolerated Referrals: [facility] [Outside] History of Present Illiness History of Present Illness: SHAI BERMAN is a 48 year old female who presented to the emergency room with acute chest pain. She admits developing moderately intense central chest sharp pain radiating into the right side of her chest and associated with a tingling sensation going down her right arm, earlier in the evening while resting in bed after she got home from work. The pain lasted for a few seconds and rapidly resolved spontaneously. She then redeveloped the pain and again it lasted for a few seconds and resolved spontaneously. The pain continued to recur at unrelated and unpredictable intervals causing her to come to the emergency room. She denies other associated or accompanying signs and symptoms. She denies prior similar episodes. She has not identified any aggravating or ameliorating factors for her chest pain. In the emergency room she was found to have an EKG and cardiac enzymes which showed no evidence of acute myocardial injury or ischemia. She was also noted to have a history of mitral and aortic porcine valve replacement and multiple risk factors including tobacco abuse, hypertension, hyperlipidemia and paroxysmal atrial fibrillation. She generally sees a planning feeder in [place]. She was subsequently admitted hospital on observation status for further evaluation and treatment. Hospital Course Hospital Course: (1) Chest pain Most likely noncardiac. Likely costochondritis. Troponins negative x3. EKG no acute changes. Restarted on home meds. Encouraged to follow-up with cardiology and PCP. (2) Chronic obstructive pulmonary disease Not acutely exacerbated. Not on home O2. Was placed on PRN DuoNeb, supplemental oxygen. (3) H/O heart valve replacement with bioprosthetic valve History of aortic and mitral valve replacement due to rheumatic heart disease. (4) Hypertension Euvolemic. Normotensive. (6) Tobacco use disorder, severe, dependence Encouraged on quitting. Physical Exam Vital Signs: Temp Pulse Resp BP Pulse Ox 98.2 F 60 16 125/61 95 05/08/19 09:46 05/08/19 09:46 05/08/19 09:46 05/08/19 09:46 05/08/19 09:46 Intake & Output 05/07/19 05/08/19 05/09/19 06:59 06:59 06:59 Weight 76.9 kg General appearance: PRESENT: no acute distress, well-developed, well-nourished Head exam: PRESENT: atraumatic, normocephalic Respiratory exam: PRESENT: clear to auscultation tomasa. ABSENT: rales, rhonchi, wheezes Cardiovascular exam: PRESENT: diastolic murmur, RRR, systolic murmur. ABSENT: rubs Pulses: PRESENT: normal dorsalis pedis pul Extremities exam: PRESENT: full ROM. ABSENT: calf tenderness, clubbing, pedal edema Neurological exam: PRESENT: alert, awake, oriented to person, oriented to place, oriented to time, oriented to situation, CN II-XII grossly intact. ABSENT: motor sensory deficit Results Laboratory Results: WBC 5.5 10^3/uL (4.0-10.5) 05/07/19 18:20 RBC 4.73 10^6/uL (3.72-5.28) 05/07/19 18:20 Hgb 13.4 g/dL (12.0-15.5) 05/07/19 18:20 Hct 40.5 % (36.0-47.0) 05/07/19 18:20 MCV 86 fl (80-97) 05/07/19 18:20 MCH 28.3 pg (27.0-33.4) 05/07/19 18:20 MCHC 33.1 g/dL (32.0-36.0) 05/07/19 18:20 RDW 15.2 % (11.5-14.0) H 05/07/19 18:20 Plt Count 139 10^3/uL (150-450) L 05/07/19 18:20 Lymph % (Auto) 26.3 % (13-45) 05/07/19 18:20 [place] % (Auto) 8.7 % (3-13) 05/07/19 18:20 Eos % (Auto) 9.2 % (0-6) H 05/07/19 18:20 Baso % (Auto) 1.1 % (0-2) 05/07/19 18:20 Absolute Neuts (auto) 3.0 10^3/uL (1.7-8.2) 05/07/19 18:20 Absolute Lymphs (auto) 1.5 10^3/uL (0.5-4.7) 05/07/19 18:20 Absolute Monos (auto) 0.5 10^3/uL (0.1-1.4) 05/07/19 18:20 Absolute Eos (auto) 0.5 10^3/uL (0.0-0.6) 05/07/19 18:20 Absolute Basos (auto) 0.1 10^3/uL (0.0-0.2) 05/07/19 18:20 Seg Neutrophils % 54.7 % (42-78) 05/07/19 18:20 Sodium 141.2 mmol/L (137-145) 05/07/19 18:20 Potassium 4.0 mmol/L (3.6-5.0) 05/07/19 18:20 Chloride 107 mmol/L (98-107) 05/07/19 18:20 Carbon Dioxide 26 mmol/L (22-30) 05/07/19 18:20 Anion Gap 8 (5-19) 05/07/19 18:20 BUN 11 mg/dL (7-20) 05/07/19 18:20 Creatinine 0.69 mg/dL (0.52-1.25) 05/07/19 18:20 Est GFR ( Amer) > 60 (>60) 05/07/19 18:20 Est GFR (MDRD) Non-Af > 60 (>60) 05/07/19 18:20 Glucose 77 mg/dL (75-110) 05/07/19 18:20 POC Glucose 79 mg/dL (70-110) 05/08/19 06:11 Calcium 9.2 mg/dL (8.4-10.2) 05/07/19 18:20 Magnesium 1.9 mg/dL (1.6-2.3) 05/07/19 18:20 Total Bilirubin 0.6 mg/dL (0.2-1.3) 05/07/19 18:20 Direct Bilirubin 0.2 mg/dL (0.0-0.4) 05/07/19 18:20 Neonat Total Bilirubin Not Reportable 05/07/19 18:20 Neonat Direct Bilirubin Not Reportable 05/07/19 18:20 Neonat Indirect Bili Not Reportable 05/07/19 18:20 AST 18 U/L (14-36) 05/07/19 18:20 ALT 10 U/L (<35) 05/07/19 18:20 Alkaline Phosphatase 95 U/L (38-126) 05/07/19 18:20 Creatine Kinase 68 U/L (30-135) 05/08/19 04:20 CK-MB (CK-2) 0.64 ng/mL (<4.55) 05/08/19 04:20 Troponin I < 0.012 ng/mL 05/08/19 04:20 NT-Pro-B Natriuret Pep 168 pg/mL (<125) H 05/07/19 18:20 Total Protein 7.0 g/dL (6.3-8.2) 05/07/19 18:20 Albumin 4.0 g/dL (3.5-5.0) 05/07/19 18:20 Serum HCG, Qual NEGATIVE (NEGATIVE) 05/07/19 18:20 05/07/19 05/07/19 05/08/19 18:20 22:18 04:20 CK-MB (CK-2) 0.64 Troponin I < 0.012 < 0.012 < 0.012 NT-Pro-B Natriuret Pep 168 H Impressions: Chest X-Ray 05/07/19 18:04 IMPRESSION: Lateral radiograph limited by suboptimal technique. No evidence of acute cardiopulmonary abnormality. Plan Time Spent: Greater than 30 Minutes Stroke Is this a Stroke Patient?: No Acute Heart Failure - Is this a Heart Failure Patient?: No
== END 2019-05-08 10:25 | disposition home or self-care (01) ==
LOC: ER 17:03 → EH 05-08 00:37 → 4S 05-08 02:32
PROVIDERS: ADMIT Emergency Medicine; ATTEND Emergency Medicine
DX: R07.9 Chest pain, unspecified (principal); J44.9 Chronic obstructive pulmonary disease, unspecified; I10 Essential (primary) hypertension; E66.9 Obesity, unspecified; R20.2 Paresthesia of skin; I48.0 Paroxysmal atrial fibrillation; Z95.3 Presence of xenogenic heart valve; F17.200 Nicotine dependence, unspecified, uncomplicated; Z86.19 Personal history of other infectious and parasitic diseases; Z95.810 Presence of automatic (implantable) cardiac defibrillator; Z82.49 Family history of ischemic heart disease and other diseases of the circulatory system; Z68.39 Body mass index [BMI] 39.0-39.9, adult; Z91.14 Patient's other noncompliance with medication regimen
CPT/HCPCS: 93005; 99284; 36415; 82553; 82962; 82550; 83735; 84703; 85025; 80053; 84484 ×2; 83880; 71046; 93010; J3490